=== PATIENT | female | born 1990 | race Caucasian/White ===

== ENCOUNTER → 2018-05-26 08:05 | Outpatient (CLI) | payer MEDICAID, SELFPAY ==
--- NOTE | 2018-05-26 08:08 | US_ITS ---
US OB transvaginal HISTORY: Evaluate early OB ultrasound ITS.REASON: US OB Dates ORDERING PHYSICIAN: Shaan Talavera MD PATIENT AGE: 28 years COMPARISON: None FINDINGS: An intrauterine gestational sac is present with a pole with a crown-rump length of 1.69cm correlating to gestational age of 8w1d. heart tones are present with an FHR of 154 bpm's. Yolk sac is noted. There is a small amount of fluid noted along the superior aspect of the gestational sac anteriorly. Unremarkable adnexa IMPRESSION: Live intrauterine gestation at 8 weeks 1 day as described above. Small amount of fluid around the gestational sac anteriorly which could be due to small amount of subchorionic hemorrhage Estimated due date by Ultrasound is 01/04/2019
== END ==
PROVIDERS: PCP Emergency Medicine; Visit Provider Nurse Practitioner Obstetrics & Gynecology
DX: O26.841 Uterine size-date discrepancy, first trimester (principal)
CPT/HCPCS: 76817

== ENCOUNTER → 2018-07-06 12:12 | Outpatient (CLI) | payer MEDICAID, SELFPAY ==
[2018-07-06 12:45] LABS: Basophils % 0.2 % (0.1-2.0); Eosinophils # 0.1 K/mm3 (0.0-0.4); Eosinophils % 0.6 % (0.1-12.0); Hematocrit 41.4 % (37.0-47.0); Lymphocytes # 1.8 K/mm3 (0.7-4.5); Lymphocytes % 23.5 % (10-50); Mean Corpuscular HGB Conc 33.8 g/dL (31.8-35.4); Mean Corpuscular Hemoglobin 29.8 pg (27.0-31.2); Mean Corpuscular Volume 88.3 fl (81-99); Mean Platelet Volume 9.2 fl (7.4-10.4); Monocytes # 0.4 K/mm3 (0.1-1.0); Monocytes % 4.7 % (1.7-9.3); Neutrophils # 5.5 K/mm3 (1.8-7.8); Neutrophils % 70.9 % (37.0-80.0); Platelet Count 187 K/mm3 (142-424); Red Blood Count 4.69 M/mm3 (4.20-5.40); Red Cell Distribution Width 14.1 % (11.5-17.5); White Blood Count 7.8 K/mm3 (4.8-10.8)
[2018-07-06 14:42] LABS: Free Thyroxine Index 3.1 ug/dL (5.93-13.13); T4 (Thyroxine) 12.2 ug/dl (4.7-13.3); Thyroid Stimulating Hormone 1.03 uIU/ml (0.358-3.740); Triiodothryronine (T3) Uptake 25 % (31-39)
[2018-07-07 07:46] LABS: Hepatitis B Surface Antigen Negative (Negative); Hepatitis C Antibody <0.1 s/co ratio (0.0-0.9)
[2018-07-08 07:47] LABS: HIV Screen 4th Generation wRfx Non Reactive (Non Reactive); Rapid Plasma Reagin Ab Titer Non Reactive (NonRea<1:1); Rubella Antibodies, IgG 1.72 index (Immune >0.99)
== END ==
PROVIDERS: Visit Provider Nurse Practitioner Obstetrics & Gynecology
DX: Z34.90 Encounter for supervision of normal pregnancy, unspecified, unspecified trimester (principal); Z3A.01 Less than 8 weeks gestation of pregnancy
CPT/HCPCS: 36415; 84436; 84443; 84479; 85025; 86592; 86703; 86762; 86850; 87340; 87380; G0432

== ENCOUNTER → 2018-07-07 18:02 | Outpatient (CLI) | payer MEDICAID, SELFPAY ==
[2018-07-13 09:48] LABS: Buprenorphine, Urine Negative ng/mL (Cutoff=10)
== END ==
PROVIDERS: Visit Provider Nurse Practitioner Obstetrics & Gynecology
DX: Z34.90 Encounter for supervision of normal pregnancy, unspecified, unspecified trimester (principal)
CPT/HCPCS: 80307

== ENCOUNTER → 2018-08-18 15:22 | Outpatient (CLI) | payer MEDICAID, SELFPAY ==
--- NOTE | 2018-08-18 15:24 | US_ITS ---
US OB /maternal detail: INDICATION: ITS.REASON: US OB Complete ORDERING PHYSICIAN: Shaan Talavera MD PATIENT AGE: 28 years TECHNIQUE: ultrasound transabdominal scanning. COMPARISON: No previous relevant studies. FINDINGS: Single viable intrauterine gestation. Ceph position. Placenta: Post/Lat placenta grade 1. There is average amount fluid. The cervix appears satisfactory. Closed and measuring 3 cm in length. Complete survey performed and was unremarkable on the submitted images as in PACS. No discrete anomalies identified on survey imaging by technologist. Active fetus. Three-vessel cord with satisfactory umbilical cord insertion. 4- chamber heart noted. Survey of brain & ventricles unremarkable. Face and neck survey unremarkable. Diaphragm and chest views unremarkable. Abdomen: Both kidneys noted and unremarkable. Stomach noted and satisfactory. Spine: Survey of the spine satisfactory with no anomalies identified nor imaged. Both arms and legs noted. Amniotic Fluid: Adequate. Maternal adnexa: No significant findings. Measurements: Average ultrasound age 20w5d. Gestational Age 20w1d. Estimated due date by ultrasound age 0812/31/2018. Estimated weight 380 grams. BPD = 20w5d OFD = 20w2d HC = 19w4d AC = 21w1d FL = 21w0d Growth Percentile= 82% Heart Rate = 125 bpm Cerebellum = 20w5d Humerus = 20w6d HC/AC is 1.06 (1.09-1.26). CI is 82% (70-86%). FL/BPD is 72%. FL/AC is 22%. IMPRESSION: There is a single live fetus which is in cephalic presentation with an average ultrasound age of 20 weeks and 5 days. No obvious anomalies. All parameters correlate. Please see above for detail
== END ==
PROVIDERS: PCP Emergency Medicine; Visit Provider Nurse Practitioner Obstetrics & Gynecology
DX: Z36.0 Encounter for antenatal screening for chromosomal anomalies (principal)
CPT/HCPCS: 76811

== ENCOUNTER 2018-10-15 09:03 | Outpatient (CLI) | payer MEDICAID, SELFPAY ==
[2018-10-15 10:26] LABS: Glucose,Fasting 86 mg/dL (60-105)
[2018-10-15 10:40] VITALS: BP 101/70; PULSE 115; RESP 18
[2018-10-15 10:44] LABS: Glucose 1 Hour 138 mg/dL (74-106)
== END 2018-10-15 10:40 | disposition home health service (06) ==
LOC: LAB 09:03 → INF 10:32
PROVIDERS: Visit Provider Nurse Practitioner Obstetrics & Gynecology
DX: Z34.90 Encounter for supervision of normal pregnancy, unspecified, unspecified trimester (principal)
CPT/HCPCS: 36415; 82951; J2790

== ENCOUNTER → 2018-12-15 18:15 | Outpatient (CLI) | payer MEDICAID, SELFPAY | PROVIDERS: Visit Provider Nurse Practitioner Obstetrics & Gynecology | DX: Z34.90 Encounter for supervision of normal pregnancy, unspecified, unspecified trimester (principal) | CPT/HCPCS: 86403 ==

== ENCOUNTER 2018-12-29 05:30 | Inpatient (IN) ==
[2018-12-29 07:13] LABS: Basophils % 0.2 % (0.1-2.0); Eosinophils # 0.1 K/mm3 (0.0-0.4); Eosinophils % 0.7 % (0.1-12.0); Hematocrit 37.7 % (37.0-47.0); Hemoglobin 12.3 g/dL (12.2-16.2); Lymphocytes % 27.6 % (10-50); Mean Corpuscular HGB Conc 32.7 g/dL (31.8-35.4); Mean Platelet Volume 10.5 fl (7.4-10.4); Monocytes # 0.5 K/mm3 (0.1-1.0); Monocytes % 6.4 % (1.7-9.3); Neutrophils # 4.8 K/mm3 (1.8-7.8); Platelet Count 170 K/mm3 (142-424); Red Blood Count 4.34 M/mm3 (4.20-5.40); Red Cell Distribution Width 14.1 % (11.5-17.5); White Blood Count 7.4 K/mm3 (4.8-10.8)
[2018-12-29 07:30] LABS: Anion Gap 15.2 mEq/L (5-15); Calcium 8.6 mg/dL (8.5-10.1)
--- NOTE | 2018-12-29 08:19 | Operative Note ---
Date of procedure: 12/29/18 Pre-op Diagnosis:: Term , previous section Post-op Diagnosis:: Term , previous section Procedure performed:: Repeat lower segment transverse section Surgeon:: Shaan Talavera MD Investigative Analyst(s):: Dr. Sena MINER:: Rudy Pan Anesthesia: spinal Estimated blood loss (mL): 600 Clinical Note:: She is a 28-year-old 4 para 3 who is had 2 previous sections. As result of that she was offered repeat lower segment transverse section at term. Operative findings:: She delivered a liveborn female infant at 7:48 AM on the morning of December 29, 2018. The baby had Apgars of 8 at 1 minute and 9 at 5 minutes. The lower uterine segment was really quite thin. It was just about a millimeter thick. Ovaries and tubes appeared normal. Operative note:: She was taken to the operating room where spinal anesthesia was found be adequate. She was prepped and draped in normal sterile fashion in the supine position with a leftward tilt. A Alvarez catheter was in the bladder. A Pfannenstiel skin incision was made with knife then carried through to the underlying layer of fascia with cautery. The fascia was opened in the midline with cautery and extended laterally using Trejo scissors. Nuria clamps were applied to the superior aspect of the fascial incision which was tented up and the underlying rectus muscles dissected off using cautery. The [place] clamps were then applied to the inferior aspect of the fascial incision which in a similar fashion was tented up and the underlying rectus muscles dissected off using cautery. The rectus muscles were then in the midline, the peritoneum identified, and entered sharply with Metzenbaum scissors. This incision was then extended superiorly and inferiorly with cautery. We had good visualization of the bladder inferiorly. The bladder peritoneum was then opened in the midline and extended laterally using Metzenbaum scissors. A bladder flap was created digitally. Transverse incision was made through the uterine muscle to the amnion. This muscle was very thin. This incision was then extended laterally using fingers traction. The amnion was entered sharply with knife. There was clear amniotic fluid. The infant's head was then delivered atraumatically. This was followed by the anterior shoulder and the rest of the infant's body atraumatically. The oropharynx and nasopharynx were bulb suctioned. The infant was then handed off to Dr. Sauer who assigned Apgars of 8 at 1 minute and 9 at 5 minutes. We then obtained cord blood as well as cord pH. Using gentle traction on the cord and countertraction on the fundus I was able to easily deliver the placenta intact. It had a normal three-vessel cord. The uterus was then cleared of clots and debris . The uterus was then exteriorized from the abdominal cavity. The uterine incision was then closed using running 0 Vicryl suture in a locked fashion. A second layer of the same suture was used to imbricate the first layer. The bladder peritoneum was then closed using running 2-0 Vicryl suture in a locked fashion. The gutters and cul-de-sac were then cleared of clots and debris . Once again hemostasis was assured. The uterus was returned to the abdominal cavity. The peritoneum was grasped with Luanne clamps and closed using running 2-0 Vicryl suture. The rectus muscles were then reapproximated using running 0 Vicryl suture. The fascia was closed using running #1 Vicryl suture. The subcutaneous tissues were then irrigated with warm water followed by closure Obdulio's fascia using running 2-0 Monocryl suture. The skin was closed with leobardo. I then cl eaned the skin with Hibiclens. Sterile dressings were applied. She tolerated the procedure well and was taken to the recovery room in excellent condition. All sponges minute and needle counts were correct. Estimate a blood loss was approximately 600 mL. Condition: stable Disposition: PACU Specimens:: Products of conception Complications:: None
--- NOTE | 2018-12-29 08:21 | Progress Note ---
[facility] Anesthesia Checklist - Patient Identification Patient Identification: Arm Band - Structural Data Admitted From: Inpatient Planned Operative Procedure/s: repeat c/s Consent for Planned Operative Procedure(s) Verified: Yes Verified Documents: Surgical Consent, History and Physical - NPO Status Verified Time NPO: 00:00 - Additional verifications Anesthesia Reactions: No - Airway Assessment C-Spine Mobility Assessed: Yes (mp2) TMJ Mobility Assessed: Yes Dentition: Good Dentition - Neurological Assessment Level of Consciousness: Awake, Alert - Anesthesia Plan Anesthesia Risk discussed: Yes Anesthesia Plan: Verified ASA Class: II Anesthesia Type: Spinal [facility] History I have reviewed the patient's past medical history: Yes Medical History: Reports:: Gastroesophageal Reflux Disease(GERD) *Have you ever received a pneumonia vaccine?: No *Have you received a flu vaccine this season?: No Other Surgeries: Yes: Amputation: No Fractures: No - *Social History Smoking Status: Current every day smoker Tobacco Type: cigarettes Alcohol Intake: never Substance Use Type: denies use *Occupational Status:: unemployed *Travel in the last 8 weeks: None Family Hx:: No significant family history Para: 3
--- NOTE | 2018-12-29 08:22 | Progress Note ---
[facility] Anesthesia Record Part II Discharge Time: 08:45 Destination: [facility] PACU nurse assessment reviewed?: Yes Patient Condition:: Good Anesthesia Complications:: None Swallowing reflex intact?: Yes Cyanosis?: No
--- NOTE | 2018-12-29 08:22 | Progress Note ---
[facility] Anesthesia Record Part I Intake, IV Amount: 2,000 Estimated blood loss (mL): 600 Urine output (mL): 200 Blood Pressure: 124/58 SaO2: 95 Pulse Rate: 88 Respiratory Rate: 16 Temperature: 97.9 F Patient is:: Drowsy, Stable Stable to PACU at:: 08:15
--- NOTE | 2018-12-29 08:28 | Pharmacy Consult Notes ---
[facility] VTE Monitoring - Patient Demographics Admission date: 12/29/18 Report Date: 12/29/18 Time: 08:28 Allergies/Adverse Reactions: Patient Allergies No Known Allergies Allergy (Verified 12/22/18 15:27) Height: 1.63 m Weight: 100.698 kg - VTE Risk Labs: VTE Related Lab Results Hgb 12.3 g/dL (12.2-16.2) 12/29/18 06:10 Hct 37.7 % (37.0-47.0) 12/29/18 06:10 Plt Count 170 K/mm3 (142-424) 12/29/18 06:10 BUN 6 mg/dL (7-18) L 12/29/18 06:10 Creatinine 0.52 mg/dL (0.55-1.02) L 12/29/18 06:10 Estimated Creat Clear 258 mL/min (50-200) 12/29/18 06:10 Clinical Trial Participant: No - Prophylaxis VTE Prophylaxis Ordered?: Yes Types of VTE Prophylaxis: IPCS [place] (POST OP)
[2018-12-29 10:44] LABS: Microscopic, Urine URINE MICROSCOPIC (MICROSCOPIC)
[2018-12-29 10:47] LABS: Appearance,Urine CLOUDY (Clear); Blood, Urine 1+ (Negative); Color,Urine YELLOW (Yellow); Glucose,Urine (UA) Negative (Negative); Ketones,Urine 3+ (Negative); Leukocyte Esterase,Urine Negative (Negative); PH,Urine 6.5 (5.0-8.5); Protein,Urine 1+ (Negative); Specific Gravity, Urine 1.025 (1.005-1.030); Urobilinogen,Urine 0.2 EU/dl (0.2)
[2018-12-29 11:05] LABS: Bilirubin,Urine 1+ (Negative)
[2018-12-29 11:06] LABS: Bacteria,Urine 2+ /lpf; Calcium Oxalate Crystals,Urine 1+ /lpf
[2018-12-29 11:18] LABS: Amphetamine/Metha Screen,Urine Negative ng/mL (<1000); Barbiturates Screen,Urine Negative ng/mL (<200); Benzodiazepines Screen,Urine Negative ng/mL (<200); Cannabinoid Screen,Urine Negative ng/mL (<50); Cocaine Screen,Urine Negative ng/mL (<300); Methadone Screen,Urine Negative ng/mL (<300); Opiate Screen,Urine Negative ng/mL (<300); Phencyclidine Screen,Urine Negative ng/mL (<25)
[2018-12-30 08:07] LABS: Hematocrit 34.6 % (37.0-47.0); Hemoglobin 11.5 g/dL (12.2-16.2)
--- NOTE | 2018-12-30 09:38 | Progress Note ---
Internal Medicine - PN: Subj *Date: 12/30/18 *Time: 09:37 Interval history: She is doing well this morning. She still has some lower abdominal pain. She would like to switch from IV Dilaudid to oral Dilaudid medicines. We will go ahead and start Dilaudid 2 mg p.o. every 3 hours as needed. Her incision is clean and dry. She is breast-feeding. Exam Vital signs and Labs for Last 24 Hours: Temp Pulse Resp BP Pulse Ox 97.6 F 87 18 108/68 L 99 12/29/18 08:45 12/29/18 08:45 12/29/18 08:45 12/29/18 08:45 12/29/18 08:45 Laboratory Results - last 24 hr 12/29/18 06:15: Urine Color Yellow, Urine Appearance Cloudy, Urine pH 6.5, Ur Specific [place] 1.025, Urine Protein 1+, Urine Glucose (UA) Negative, Urine Ketones 3+, Urine Blood 1+, Urine Nitrate Negative, Urine Bilirubin 1+ A, Urine Urobilinogen 0.2, Ur Leukocyte Esterase Negative, Urine RBC 5-10, Urine WBC 5- 10, Ur Squamous Epith Cells 10-20, Calcium Oxalate Crystal 1+, Urine Bacteria 2+ 12/29/18 06:15: Urine Opiates Screen Negative, Urine Methadone Screen Negative, Ur Barbituates Screen Negative, Ur Phencyclidine Scrn Negative, Ur Amphetamines Screen Negative, U Benzodiazepines Scrn Negative, Urine Cocaine Screen Negative, U Marijuana (THC) Screen Negative 12/29/18 08:06: POC Glucose 63 L 12/30/18 07:30: Hgb 11.5 L, Hct 34.6 L I & O for Last 24 hours: Intake & Output 12/27/18 12/28/18 12/29/18 12/30/18 11:59 11:59 11:59 11:59 Intake Total 1999 Balance 1999 Weight 222 lb - Constitutional no acute distress Assessment and Plan (1) Delivery by section of full-term Current visit: Yes Status: Acute Category: Medical Code(s): O82 - Encounter for delivery without indication (2) Previous section Current visit: No Status: Acute Category: Surgical Code(s): Z98.891 - History of uterine scar from previous surgery - Assessment and plan all Dx Assessment and Plan for all problems:: She is doing very well. We will change to oral Dilaudid. We will plan to send her home in 48 hours.
--- NOTE | 2018-12-31 08:59 | Progress Note ---
Internal Medicine - PN: Subj *Date: 12/31/18 *Time: 08:58 Interval history: She continues to do well. Her pain is better controlled today. She did have some increased pain yesterday. Her incision is clean and dry. She is breast- feeding. Exam Vital signs and Labs for Last 24 Hours: Temp Pulse Resp BP Pulse Ox 97.6 F 87 18 108/68 L 99 12/29/18 08:45 12/29/18 08:45 12/29/18 08:45 12/29/18 08:45 12/29/18 08:45 Laboratory Results - last 24 hr 12/30/18 07:30: Blood Type O Negative, Antibody Screen Negative, Screen Negative, Baby's Rh Status Positive 12/30/18 11:25: Rhogam Infusion Rhogam release I & O for Last 24 hours: Intake & Output 12/28/18 12/29/18 12/30/18 12/31/18 11:59 11:59 11:59 11:59 Intake Total 1999 Balance 1999 Weight 222 lb Microbiology Reports for the Last 24 Hours: Microbiology 12/29/18 06:15 Urine,Clean Catch Urine Culture - Preliminary NO GROWTH AFTER 24 HOURS - Constitutional no acute distress Assessment and Plan (1) Delivery by section of full-term Current visit: Yes Status: Acute Category: Medical Code(s): O82 - Encounter for delivery without indication (2) Previous section Current visit: No Status: Acute Category: Surgical Code(s): Z98.891 - History of uterine scar from previous surgery - Assessment and plan all Dx Assessment and Plan for all problems:: She is doing better today. She is breast-feeding. We will plan to send her home tomorrow.
[2018-12-31 10:15] VITALS: BP 73/46
--- NOTE | 2019-01-01 10:21 | Discharge Summary ---
General - General Admission date:: 12/29/18 Discharge date: 01/01/19 HPI HPI: She is a 28-year-old 4 para 3 who was 39 weeks gestational age. She has had 2 previous sections and as a result that was offered repeat lower segment transverse section at term. Hospital Course Hospital Course: She delivered by section a liveborn female child at 7:48 AM on the morning of December 29, 2018. The baby weighed 7 pounds 10 ounces and had Apgars of 8 at 1 minute and 9 at 5 minutes. She has done well post operatively and has remained afebrile throughout her hospitalization. She is eating and drinking and ambulating. Her pain is well controlled. She is breast-feeding. She has O Rh- blood and she has received RhoGam. She is rubella immune and was group B strep negative. Her selling manager is Dr. Sauer. She is discharged home to follow-up with me in approximately 2 weeks time. She will continue with her vitamins and iron. She was given the usual instructions with respect to limiting her activity and driving and sexual activity. She was given a prescription for hydromorphone 2 mg every 6 hours number 30 tablets. Her condition on discharge is stable. Objective Vital signs: Temp Pulse Resp BP Pulse Ox 98 F 168 H 48 H 73/46 L 100 12/31/18 08:00 12/31/18 08:00 12/31/18 08:00 12/31/18 08:00 12/31/18 08:00 no acute distress DS: Diagnosis - Discharge Diagnosis (1) Delivery by section of full-term Status: Acute (2) Previous section Status: Acute Discharge Plan - Patient Discharge Instructions ACTIVITY: No heavy lifting DIET: continue same diet - Follow up Plan Disposition: Home, Self-Correction Medications: Home Medications Medication Instructions Recorded Confirmed Type Ferrous Sulfate 325 mg PO DAILY 12/29/18 12/29/18 History Pnv No.122/Iron/Folic Acid 1 tab PO DAILY 12/29/18 12/29/18 History [ Multi] raNITIdine HCl [Ranitidine HCl] 150 mg PO BID 12/29/18 12/29/18 History Hydromorphone HCl [Hydromorphone 2 mg PO Q4HP PRN #30 tab 01/01/19 Rx 2mg Tab] Prescriptions/Medication Reconciliation: New Hydromorphone HCl [Hydromorphone 2mg Tab] 2 mg PO Q4HP PRN #30 tab PRN Reason: Severe Pain Continued raNITIdine HCl [Ranitidine HCl] 150 mg PO BID Ferrous Sulfate 325 mg PO DAILY Pnv No.122/Iron/Folic Acid [ Multi] 1 tab PO DAILY - Problem Reconciliation Problems Reviewed?: Yes
== END 2019-01-01 14:00 | disposition home or self-care (01) | DRG 788 ==
LOC: OB 05:30
PROVIDERS: ADMIT Nurse Practitioner Obstetrics & Gynecology; ATTEND Nurse Practitioner Obstetrics & Gynecology
CPT/HCPCS: 36415; 59025; 80048; 80305; 81001; 82800; 82962; 85014; 85018; 85025; 85461; 86850; 87086; J2405; J2790

== ENCOUNTER → 2020-02-15 16:22 | Outpatient (CLI) | payer MEDICAID, SELFPAY ==
[2020-02-15 16:33] LABS: Basophils % 0.4 % (0.1-2.0); Eosinophils # 0.2 K/mm3 (0.0-0.4); Eosinophils % 1.7 % (0.1-12.0); Hematocrit 44.4 % (37.0-47.0); Hemoglobin 14.3 g/dL (12.2-16.2); Lymphocytes # 2.7 K/mm3 (0.7-4.5); Lymphocytes % 29.9 % (10-50); Mean Corpuscular HGB Conc 32.2 g/dL (31.8-35.4); Mean Corpuscular Hemoglobin 30.3 pg (27.0-31.2); Mean Corpuscular Volume 94.2 fl (81-99); Mean Platelet Volume 10.5 fl (7.4-10.4); Monocytes # 0.5 K/mm3 (0.1-1.0); Monocytes % 5.6 % (1.7-9.3); Neutrophils # 5.6 K/mm3 (1.8-7.8); Neutrophils % 62.4 % (37.0-80.0); Platelet Count 241 K/mm3 (142-424); Red Blood Count 4.71 M/mm3 (4.20-5.40); Red Cell Distribution Width 13.5 % (11.5-17.5)
[2020-02-15 16:41] LABS: Chloride 106 mmol/L (98-107); Potassium 4.3 mmoL/L (3.5-5.1); Sodium 137 mmol/L (136-145)
[2020-02-15 16:44] LABS: Alanine Aminotransferase 15 U/L (12-78); Albumin Level 3.9 g/dl (3.5-5.0); Albumin/Globulin Ratio 1.4 (1.1-1.8); Alkaline Phosphatase 65 U/L (38-126); Anion Gap 12.3 mEq/L (5-15); Aspartate Amino Transferase 22 U/L (14-36); Bilirubin,Total 0.4 mg/dl (0.2-1.3); Blood Urea Nitrogen 14 mg/dl (7-17); Carbon Dioxide 23 mmol/L (22.0-30.0); Cholesterol 199 mg/dl (140-200); Estimated Glomerular Filt Rate 119 ml/min (>60); GFR (African American) 144 ML/MIN (>60); Globulin 2.8 g/dL (1.3-3.2); Total Protein,Serum 6.7 g/dl (6.3-8.2); Triglycerides 131 mg/dl (30-150); VLDL Cholesterol 26 mg/dL (0-40)
[2020-02-15 16:45] LABS: Calcium 8.9 mg/dl (8.4-10.2); Glucose 103 mg/dl (74-100); HDL Cholesterol 67 mg/dl (40-60)
[2020-02-15 16:56] LABS: Direct LDL Cholesterol 125.11 mg/dL (100-129)
[2020-02-15 17:01] LABS: T4 (Thyroxine) 14.2 ug/dl (5.53-11.0)
== END ==
PROVIDERS: Visit Provider Nurse Practitioner Family
DX: E03.9 Hypothyroidism, unspecified (principal); E66.9 Obesity, unspecified
CPT/HCPCS: 80053; 80061; 84436; 84443; 85025

== ENCOUNTER → 2020-05-07 18:09 | Outpatient (CLI) | payer MEDICAID, SELFPAY ==
[2020-05-07 19:00] LABS: Thyroid Stimulating Hormone 1.58 uIU/mL (0.465-4.68)
== END ==
LOC: LAB 18:09 → LAB.DROPOF 05-08 08:35
PROVIDERS: Visit Provider Physician Assistant
DX: R53.83 Other fatigue (principal)
CPT/HCPCS: 84443

== ENCOUNTER → 2021-02-06 17:17 | Outpatient (CLI) | payer MEDICAID, SELFPAY ==
[2021-02-06 21:08] LABS: Amphetamine/Metha Screen,Urine Negative ng/ml (<1000); Barbiturates Screen,Urine Negative ng/ml (<200)
[2021-02-06 21:12] LABS: Benzodiazepines Screen,Urine Positive ng/ml (<200); Cannabinoid Screen,Urine Positive ng/ml (<50)
[2021-02-06 21:13] LABS: Cocaine Screen,Urine Negative ng/ml (<300)
[2021-02-06 21:14] LABS: Methadone Screen,Urine Negative ng/ml (<300); Opiate Screen,Urine Positive ng/ml (<300)
[2021-02-06 21:15] LABS: Phencyclidine Screen,Urine Negative ng/ml (<25)
== END ==
PROVIDERS: Visit Provider Nurse Practitioner Family
DX: F41.9 Anxiety disorder, unspecified (principal)
CPT/HCPCS: 80305

== ENCOUNTER → 2021-03-30 12:38 | Outpatient (CLI) | payer MEDICAID, SELFPAY ==
[2021-04-01 13:29] LABS: H. pylori Breath Test Negative (Negative)
== END ==
PROVIDERS: Visit Provider Physician Assistant
DX: R10.9 Unspecified abdominal pain (principal)
CPT/HCPCS: 83013

== ENCOUNTER → 2021-05-29 14:23 | Outpatient (CLI) | payer MEDICAID, SELFPAY | PROVIDERS: Visit Provider Nurse Practitioner Family | DX: Z20.822 Contact with and (suspected) exposure to COVID-19 (principal); R05.9 Cough, unspecified | CPT/HCPCS: C9803; U0003; U0005 ==

== ENCOUNTER → 2022-03-24 14:19 | Outpatient (CLI) | payer MEDICAID, SELFPAY ==
[2022-03-24 15:14] LABS: Basophils % 0.7 % (0.1-2.0); Eosinophils # 0.2 K/mm3 (0.0-0.4); Eosinophils % 2.6 % (0.1-12.0); Hematocrit 44.9 % (37.0-47.0); Hemoglobin 14.1 g/dL (12.2-16.2); Lymphocytes # 1.6 K/mm3 (0.7-4.5); Lymphocytes % 29.6 % (10-50); Mean Corpuscular HGB Conc 31.3 g/dL (31.8-35.4); Mean Corpuscular Hemoglobin 27.9 pg (27.0-31.2); Mean Platelet Volume 10.9 fl (7.4-10.4); Monocytes # 0.3 K/mm3 (0.1-1.0); Monocytes % 5.6 % (1.7-9.3); Neutrophils # 3.4 K/mm3 (1.8-7.8); Neutrophils % 61.4 % (37.0-80.0); Platelet Count 166 K/mm3 (142-424); Red Blood Count 5.05 M/mm3 (4.20-5.40); Red Cell Distribution Width 14.3 % (11.5-17.5); White Blood Count 5.5 K/mm3 (4.8-10.8)
[2022-03-24 15:46] LABS: Chloride 104 mmol/L (98-107); Potassium 4.3 mmoL/L (3.5-5.1); Sodium 140 mmol/L (136-145)
[2022-03-24 15:49] LABS: Alanine Aminotransferase 37 U/L (12-78); Albumin/Globulin Ratio 1.8 (1.1-1.8); Alkaline Phosphatase 80 U/L (38-126); Anion Gap 12.3 mEq/L (5-15); Aspartate Amino Transferase 38 U/L (14-36); Bilirubin,Total 0.2 mg/dl (0.2-1.3); Blood Urea Nitrogen 11 mg/dl (7-17); Calcium 9.1 mg/dl (8.4-10.2); Carbon Dioxide 28 mmol/L (22.0-30.0); Estimated Glomerular Filt Rate 117 ml/min (>60); GFR (African American) 141 ML/MIN (>60); Globulin 2.2 g/dL (1.3-3.2); Glucose 105 mg/dl (74-100); Total Protein,Serum 6.2 g/dl (6.3-8.2)
[2022-03-24 16:26] LABS: HCG,Quantitative < 2 mIU/ml (0-5.42)
== END ==
PROVIDERS: PCP Emergency Medicine; Visit Provider Obstetrics & Gynecology
DX: Z30.09 Encounter for other general counseling and advice on contraception (principal)
CPT/HCPCS: 36415; 80053; 84702; 85025

== ENCOUNTER 2022-03-26 05:55 | Day surgery (SDC) | payer MEDICAID, SELFPAY ==
[2022-03-26] VITALS (14 sets, daily range): BP systolic 121–153; BP diastolic 56–83; PULSE 74–100; RESP 16–23; TEMP 36.5–38; O2SAT 94–100; BMI 43.9
--- NOTE | 2022-03-26 07:07 | EXP.ANES.CKL ---
PFSH PFSH Medical History Allergies Anxiety Attention deficit hyperactivity disorder (ADHD) Depression Gastroesophageal reflux disease History of anemia History of gastroesophageal reflux (GERD) Hypothyroidism Kidney stone Morbid obesity with BMI of 40.0-44.9, adult Pneumonia Sterilization Urinary tract infection Surgical History Hx of section Family History Father Diabetes Thyroid disorder Mother COPD (chronic obstructive pulmonary disease) Thyroid disorder Social History Smoking Status: Current every day smoker tobacco type: cigarettes packs per day: 1 years smoked: 10 alcohol intake: current substance use type: marijuana current occupational status: unemployed Travel in the last 8 weeks: Inside the [place] caffeine: No [facility] Anesthesia Checklist Patient Identification Patient Identification: Arm Band and Verbal (Name & ) Structural Data Admitted From: Home Planned Operative Procedure/s: Lap. salpingectomy Consent for Planned Operative Procedure(s) Verified: Yes NPO Status Verified Time NPO: 00:00 Chart Verification Results Verified: CBC and BMP Additional verifications Anesthesia Reactions: No Hx Blood Transfusions: No Blood Transfusion Reaction: No Airway Assessment C-Spine Mobility Assessed: Yes TMJ Mobility Assessed: Yes Dentition: Good Dentition Neurological Assessment Level of Consciousness: Awake Hx Seizures: No Numbness or tingling in extremities: No Anesthesia Plan Anesthesia Risk discussed: Yes Anesthesia Plan: Verified ASA Class: II Anesthesia Type: General
--- NOTE | 2022-03-26 08:50 | P.PNANES_ITS ---
[facility] Anesthesia Record Part I Anesthesia Record I Intake, IV Amount: 900 Estimated blood loss (mL): 50 Urine output (mL): 0 Blood Pressure: 152/69 SaO2: 98 Pulse Rate: 100 Respiratory Rate: 23 Temperature: 98.3 F Patient is:: Awake Stable to PACU at:: 08:48
--- NOTE | 2022-03-26 09:28 | SUR.PHASEI ---
Report called to Warren Laird RN. [id number] - Pt transported to post op and left in care of A ALKA Laird. Bed in lowest locked position. Pt currently sitting up in bed drinking water. Pain 09/01, reports tolerable. Incisions x3 w/ dermabond c/d/i. No vaginal bleeding noted.
--- NOTE | 2022-03-26 09:40 | SUR.PHASEII ---
Will Starkey CRNA did not give Tylenol pre-op or in OR.
--- NOTE | 2022-03-26 11:23 | EXP.OP.NOTE ---
Date of procedure: 03/26/22 Pre-op Diagnosis:: 1. Complete family status, desires permanent sterilization Post-op Diagnosis:: 1. Complete family status, desires permanent sterilization 2. Intra-abdominal/pelvic adhesions Procedure performed:: 1. Laparoscopy 2. Lysis of adhesions, 10 minutes spent lysising adhesions 3. Bilateral salpingectomy Surgeon:: Kaylin Dillon DO Professor Of Criminal Justice(s):: N/a AFTER SCHO[employer] PROGRAM DIRECTOR:: Heike Starkey Anesthesia: GETA Estimated blood loss (mL): 50 Clinical Note:: Ms Nalini Taylor presents for preop visit. She is a very pleasant 32 yo [id number]. She is complete with childbearing and desires permanent sterilization. History of x 4. Operative findings:: 1. Uterus normal size, anteverted and not freely movable 2. No adnexal masses palpated 3. On laparoscopic exam, omentum adhered to anterior abdominal wall from umbilicus down to anterior aspect of uterus 4. Thick adhesions between bladder and anterior uterine wall holding uterus in place Operative note:: Risks, benefits and alternatives were discussed with the patient. Risks include but are not limited to bleeding, infection, damage to adjacent structures and VTE. Patient voiced understanding and agreed to proceed with surgery. She was wheeled back to the operating room and placed under general anesthesia without difficulty. She was placed in the dorsal lithotomy position and prepped and draped in normal sterile fashion. A straight catheter was used to drain the bladder. A bimanual exam was performed. A weighted Auvard was placed in the vaginal vault. A single tooth tenaculum was placed on the anterior lip of the cervix. [place] manipulator was inserted into the cervical canal and attached to the tenaculum. Weighted Auvard was removed from the vagina. Attention was then drawn to the abdomen. A 2cm infraumbilical incision was made. Veress needle was tested and inserted intraabdominally without difficulty. Opening pressure of 7 mm Hg. Abdomen was then insulflated to 15 mm Hg. Trocar was inserted through infraumbilical incision and laparoscope was inserted. Abdomen was viewed in its entirety. See findings above. Pictures were taken. Left lower quadrant was transilluminated. 5 mm incision was made and 5 mm disposable blunt trocar was inserted into the abdomen under direct laparoscopic visualization. Trocar was removed and sleeve was left in place. Right lower quadrant was transilluminated. A 5 mm incision was made and a 5 mm disposable trocar was inserted into the abdomen under direct laparoscopic visualization. Obturator was removed and sleeve was left in place. Lysis of intraabdominal adhesions was performed with blunt dissection and Ligasure. Next, Fimbriated end of left fallopian tube was grasped. Ligasure was used to transect the right mesosalpinx and fallopian tube at uterine cornua, leaving left ovary in situ. Same procedure was carried out on the contralateral side. Bilateral fallopian tubes were removed from the body and off of the sterile field. Bilateral fallopian tubes will be sent to pathology for review. Small amount of oozing noted at anterior uterine serosa where adhesions were lysed. Bhupinder was applied over bleeding site. Hemostasis was noted. Intraabdominal pressure was reduced to 5 mm Hg and hemostasis remained. Left lower quadrant trocar was removed under direct laparoscopic visualization. Right lower quadrant trocar was removed under direct laparoscopic visualization. Pneumoperitoneum was released into the atmosphere. Infraumbilical trocar was removed under direct laparoscopic visualization to ensure no herniation of bowel or omentum. Skin incisions were closed with 3-0 Vicryl. Dermabond was applied over closed skin incisions. All instruments were removed from the vagina. Tenaculum site was noted to be hemostatic. Patient was cleaned and placed into the dorsal supine position. She awoke from anesthesia without difficulty. She was transported to the recovery room in stable condition
--- NOTE | 2022-03-27 09:06 | EXP.ANES.II ---
[facility] Anesthesia Record Part II Anesthesia Record Part II Discharge Time: 09:18 Destination: Surgical Day Care (OP Surgery) PACU nurse assessment reviewed?: Yes Patient Condition:: Good Anesthesia Complications:: None Swallowing reflex intact?: Yes Cyanosis?: No Blood Pressure: 123/83 Pulse Rate: 86 Temperature: 98.6 F Mental Status: Alert & Oriented Pain level:: 4 Nausea and/or vomitting:: None Intake, IV Amount: 0
[2022-03-27 09:08] VITALS: BP 123/83; PULSE 86; TEMP 37
== END 2022-03-26 10:20 | disposition home or self-care (01) ==
PROVIDERS: PCP Emergency Medicine; Visit Provider Obstetrics & Gynecology
PROC: (CPT 58700; principal; 2022-03-26 07:30)
DX: Z30.2 Encounter for sterilization (principal); N73.6 Female pelvic peritoneal adhesions (postinfective); Z72.0 Tobacco use; Z79.899 Other long term (current) drug therapy
CPT/HCPCS: 58700; 49329; J2405

== ENCOUNTER → 2022-04-30 16:15 | Outpatient (CLI) | payer MEDICAID, SELFPAY ==
[2022-05-01 09:55] LABS: Barbiturates Screen,Urine Negative ng/ml (<200)
[2022-05-01 09:56] LABS: Benzodiazepines Screen,Urine Positive ng/ml (<200)
[2022-05-01 09:57] LABS: Amphetamine/Metha Screen,Urine Positive ng/ml (<1000); Cocaine Screen,Urine Negative ng/ml (<300)
[2022-05-01 09:58] LABS: Methadone Screen,Urine Negative ng/ml (<300)
[2022-05-01 09:59] LABS: Cannabinoid Screen,Urine Positive ng/ml (<50); Opiate Screen,Urine Negative ng/ml (<300)
[2022-05-01 10:00] LABS: Phencyclidine Screen,Urine Negative ng/ml (<25)
== END ==
PROVIDERS: PCP Physician Assistant; Visit Provider Physician Assistant
DX: Z79.899 Other long term (current) drug therapy (principal)
CPT/HCPCS: 80305

== ENCOUNTER → 2022-10-28 13:43 | Outpatient (CLI) | payer MEDICAID, SELFPAY ==
[2022-10-28 19:13] LABS: Basophils % 0.5 % (0.1-2.0); Eosinophils # 0.2 K/mm3 (0.0-0.4); Eosinophils % 2.9 % (0.1-12.0); Hematocrit 45.1 % (37.0-47.0); Hemoglobin 14.2 g/dL (12.2-16.2); Lymphocytes # 2.9 K/mm3 (0.7-4.5); Lymphocytes % 41.9 % (10-50); Mean Corpuscular HGB Conc 31.5 g/dL (31.8-35.4); Mean Corpuscular Hemoglobin 28.3 pg (27.0-31.2); Monocytes # 0.3 K/mm3 (0.1-1.0); Monocytes % 4.7 % (1.7-9.3); Neutrophils # 3.5 K/mm3 (1.8-7.8); Neutrophils % 50.1 % (37.0-80.0); Platelet Count 221 K/mm3 (142-424); Red Blood Count 5.01 M/mm3 (4.20-5.40); Red Cell Distribution Width 14.8 % (11.5-17.5); White Blood Count 6.9 K/mm3 (4.8-10.8)
[2022-10-28 19:55] LABS: Alanine Aminotransferase 19 U/L (12-78); Albumin Level 3.8 g/dl (3.5-5.0); Albumin/Globulin Ratio 1.5 (1.1-1.8); Alkaline Phosphatase 73 U/L (38-126); Anion Gap 13.8 mEq/L (5-15); Aspartate Amino Transferase 25 U/L (14-36); Bilirubin,Total 0.3 mg/dl (0.2-1.3); Blood Urea Nitrogen 15 mg/dl (7-17); Calcium 8.1 mg/dl (8.4-10.2); Carbon Dioxide 25 mmol/L (22.0-30.0); Chloride 106 mmol/L (98-107); Chol/HDL Ratio 3.9 (1-3.5); Cholesterol 189 mg/dl (140-200); Estimated Glomerular Filt Rate 117 ml/min (>60); GFR (African American) 141 ML/MIN (>60); Globulin 2.6 g/dL (1.3-3.2); Glucose 102 mg/dl (74-100); HDL Cholesterol 49 mg/dl (40-60); Potassium 3.8 mmoL/L (3.5-5.1); Sodium 141 mmol/L (136-145); Total Protein,Serum 6.4 g/dl (6.3-8.2); Triglycerides 164 mg/dl (30-150); VLDL Cholesterol 33 mg/dL (0-40)
[2022-10-28 20:06] LABS: Direct LDL Cholesterol 104.65 mg/dL (100-129)
[2022-10-28 20:12] LABS: 25-OH Vitamin D, Total < 12.8 ng/mL (30-100)
[2022-10-28 20:27] LABS: Thyroid Stimulating Hormone 4.93 uIU/mL (0.465-4.68)
[2022-10-28 21:24] LABS: Amphetamine/Metha Screen,Urine Positive ng/ml (<1000)
[2022-10-28 21:25] LABS: Barbiturates Screen,Urine Negative ng/ml (<200); Benzodiazepines Screen,Urine Positive ng/ml (<200)
[2022-10-28 21:28] LABS: Cannabinoid Screen,Urine Positive ng/ml (<50); Cocaine Screen,Urine Negative ng/ml (<300)
[2022-10-28 21:29] LABS: Methadone Screen,Urine Negative ng/ml (<300)
[2022-10-28 21:30] LABS: Opiate Screen,Urine Negative ng/ml (<300); Phencyclidine Screen,Urine Negative ng/ml (<25)
== END ==
PROVIDERS: PCP Physician Assistant; Visit Provider Physician Assistant
DX: Z00.00 Encounter for general adult medical examination without abnormal findings (principal); F90.9 Attention-deficit hyperactivity disorder, unspecified type; E55.9 Vitamin D deficiency, unspecified; Z79.899 Other long term (current) drug therapy
CPT/HCPCS: 80053; 80061; 80305; 82306; 84443; 85025

== ENCOUNTER → 2022-10-28 23:11 | Outpatient (CLI) | payer MEDICAID, SELFPAY | PROVIDERS: PCP Physician Assistant; Visit Provider Physician Assistant | DX: Z00.00 Encounter for general adult medical examination without abnormal findings (principal) ==

== ENCOUNTER → 2023-03-16 06:56 | Outpatient (CLI) | payer MEDICAID, SELFPAY ==
[2023-03-16 21:42] LABS: Amphetamine/Metha Screen,Urine Negative ng/ml (<1000); Cannabinoid Screen,Urine Positive ng/ml (<50)
[2023-03-16 21:43] LABS: Barbiturates Screen,Urine Negative ng/ml (<200)
[2023-03-16 21:44] LABS: Benzodiazepines Screen,Urine Positive ng/ml (<200); Cocaine Screen,Urine Negative ng/ml (<300)
[2023-03-16 21:45] LABS: Methadone Screen,Urine Negative ng/ml (<300); Opiate Screen,Urine Negative ng/ml (<300)
[2023-03-16 21:46] LABS: Phencyclidine Screen,Urine Negative ng/ml (<25)
== END ==
PROVIDERS: PCP Physician Assistant; Visit Provider Physician Assistant
DX: F90.9 Attention-deficit hyperactivity disorder, unspecified type (principal); Z79.899 Other long term (current) drug therapy
CPT/HCPCS: 80305

== ENCOUNTER → 2023-05-07 22:00 | Outpatient (CLI) | payer MEDICAID, SELFPAY ==
[2023-05-07 20:12] LABS: Benzodiazepines Screen,Urine Positive ng/ml (<200)
[2023-05-07 20:13] LABS: Amphetamine/Metha Screen,Urine Negative ng/ml (<1000)
[2023-05-07 20:14] LABS: Barbiturates Screen,Urine Negative ng/ml (<200); Methadone Screen,Urine Negative ng/ml (<300)
[2023-05-07 20:15] LABS: Cannabinoid Screen,Urine Positive ng/ml (<50)
[2023-05-07 20:16] LABS: Cocaine Screen,Urine Negative ng/ml (<300)
[2023-05-07 20:17] LABS: Opiate Screen,Urine Negative ng/ml (<300)
[2023-05-07 20:18] LABS: Phencyclidine Screen,Urine Negative ng/ml (<25)
== END ==
PROVIDERS: PCP Physician Assistant; Visit Provider Physician Assistant
DX: Z79.899 Other long term (current) drug therapy (principal)
CPT/HCPCS: 80305

== ENCOUNTER 2023-06-09 11:53 | Outpatient (CLI) | payer MEDICAID, SELFPAY ==
[2023-06-09 17:40] LABS: Amphetamine/Metha Screen,Urine Positive ng/ml (<1000)
[2023-06-09 17:41] LABS: Barbiturates Screen,Urine Negative ng/ml (<200)
[2023-06-09 17:42] LABS: Benzodiazepines Screen,Urine Positive ng/ml (<200)
[2023-06-09 17:45] LABS: Cannabinoid Screen,Urine Positive ng/ml (<50)
[2023-06-09 17:46] LABS: Cocaine Screen,Urine Negative ng/ml (<300)
[2023-06-09 17:47] LABS: Methadone Screen,Urine Negative ng/ml (<300); Opiate Screen,Urine Negative ng/ml (<300)
[2023-06-09 17:48] LABS: Phencyclidine Screen,Urine Negative ng/ml (<25)
== END 2023-06-09 23:59 ==
LOC: LAB.DROPOF 11:53
PROVIDERS: PCP Physician Assistant; Visit Provider Physician Assistant
DX: F41.9 Anxiety disorder, unspecified (principal); F90.9 Attention-deficit hyperactivity disorder, unspecified type
CPT/HCPCS: 80307

== ENCOUNTER 2023-07-03 13:11 | Outpatient (CLI) | payer MEDICAID, SELFPAY ==
[2023-07-03 18:44] LABS: Basophils % 0.2 % (0.1-2.0); Eosinophils # 0.1 K/mm3 (0.0-0.4); Hematocrit 43.9 % (37.0-47.0); Lymphocytes # 2.3 K/mm3 (0.7-4.5); Mean Corpuscular HGB Conc 31.9 g/dL (31.8-35.4); Mean Corpuscular Hemoglobin 28.9 pg (27.0-31.2); Mean Corpuscular Volume 90.7 fl (81-99); Mean Platelet Volume 10.4 fl (7.4-10.4); Monocytes # 0.6 K/mm3 (0.1-1.0); Monocytes % 5.8 % (1.7-9.3); Neutrophils # 7.1 K/mm3 (1.8-7.8); Neutrophils % 69.9 % (37.0-80.0); Platelet Count 194 K/mm3 (142-424); Red Blood Count 4.84 M/mm3 (4.20-5.40); Red Cell Distribution Width 14.8 % (11.5-17.5); White Blood Count 10.2 K/mm3 (4.8-10.8)
[2023-07-03 19:27] LABS: Alanine Aminotransferase 16 U/L (12-78); Albumin Level 3.7 g/dl (3.5-5.0); Albumin/Globulin Ratio 1.7 (1.1-1.8); Alkaline Phosphatase 63 U/L (38-126); Aspartate Amino Transferase 18 U/L (14-36); Bilirubin,Total 0.4 mg/dl (0.2-1.3); Blood Urea Nitrogen 12 mg/dl (7-17); Calcium 8.8 mg/dl (8.4-10.2); Carbon Dioxide 26 mmol/L (22.0-30.0); Chloride 109 mmol/L (98-107); Chol/HDL Ratio 3.5 (1-3.5); Cholesterol 205 mg/dl (140-200); Estimated Glomerular Filt Rate 116 ml/min (>60); GFR (African American) 140 ML/MIN (>60); Globulin 2.2 g/dL (1.3-3.2); Glucose 97 mg/dl (74-100); HDL Cholesterol 58 mg/dl (40-60); Sodium 139 mmol/L (136-145); Total Protein,Serum 5.9 g/dl (6.3-8.2); Triglycerides 79 mg/dl (30-150); VLDL Cholesterol 16 mg/dL (0-40)
[2023-07-03 19:39] LABS: Direct LDL Cholesterol 106.71 mg/dL (100-129)
[2023-07-03 19:51] LABS: Free Thyroxine Index 2.8 ug/dL (5.93-13.13); T4 (Thyroxine) 8.1 ug/dl (5.53-11.0); Triiodothryronine (T3) Uptake 34 % (23.5-40.5)
[2023-07-03 20:00] LABS: Thyroid Stimulating Hormone 1.04 uIU/mL (0.465-4.68)
[2023-07-03 20:04] LABS: Thyroid Stimulating Hormone 1.05 uIU/mL (0.465-4.68)
[2023-07-07 20:56] LABS: Neisseria gonorrhoeae, NAA Negative (Negative)
== END 2023-07-03 23:59 ==
LOC: LAB.DROPOF 13:13
PROVIDERS: PCP Family Medicine; Visit Provider Family Medicine
DX: Z20.2 Contact with and (suspected) exposure to infections with a predominantly sexual mode of transmission (principal); E03.9 Hypothyroidism, unspecified; R53.83 Other fatigue; Z79.899 Other long term (current) drug therapy
CPT/HCPCS: 80053; 80061; 84436; 84443; 84479; 85025; 87210; 87491; 87591

== ENCOUNTER 2024-03-29 20:34 | Observation (INO) | payer OTHER, SELFPAY ==
[2024-03-29] VITALS (7 sets, daily range): BP systolic 126–138; BP diastolic 80–95; PULSE 73–108; RESP 16–25; TEMP 36.6–37.1; O2SAT 92–94; BMI 79.4; BMI 34.4
--- NOTE | 2024-03-29 20:44 | XR_ITS ---
PROCEDURE INFORMATION: Exam: XR Chest Exam date and time: 03/29/2024 8:44 PM Age: 34 years old Clinical indication: Sternal or substernal pain; Additional info: Substernal cp, cough, fever, wheezing TECHNIQUE: Imaging protocol: Radiologic exam of the chest. Views: 2 views. COMPARISON: No relevant prior studies available. FINDINGS: Lungs: Mild opacities in the right lower lobe Pleural spaces: Unremarkable. No pleural effusion. No pneumothorax. Heart/Mediastinum: Unremarkable. No cardiomegaly. Bones/joints: Unremarkable. IMPRESSION: Mild opacities in the right lower lobe may represent atelectasis or pneumonia.
--- NOTE | 2024-03-29 21:12 | [facility].EDCP ---
Discharge Plan Disposition Patient Disposition: Admitted Prescriptions Prescriptions: No Action albuterol sulfate 90 mcg/actuation HFA aerosol inhaler 2 puff INHALATION QID PRN (Reason: shortness of breath or wheezing) Qty: 8.5 10RF fluconazole 150 mg tablet 150 mg PO Q3D Qty: 3 0RF (DME) Giovanni Mota [facility] Spacer See Rx Instructions .ROUTE .MEDSUPPLY Qty: 1 Rx Instructions: As directed ergocalciferol (vitamin D2) 1,250 mcg (50,000 unit) capsule 1,250 mcg PO WEEKLY Qty: 14 3RF fluticasone propionate 50 mcg/actuation spray,suspension See Rx Instructions .ROUTE .COMPLEX Qty: 16 0RF Rx Instructions: USE 1 SPRAY TWICE DAILY ADMINISTER INTO EACH NOSTRIL omeprazole 40 mg capsule,delayed release(DR/EC) See Rx Instructions .ROUTE .COMPLEX Qty: 90 1RF Dose Instruction: TAKE ONE CAPSULE BY MOUTH ONCE A DAY Rx Instructions: TAKE ONE CAPSULE BY MOUTH ONCE A DAY levothyroxine 50 mcg tablet See Rx Instructions .ROUTE .COMPLEX Qty: 90 1RF Dose Instruction: TAKE ONE TABLET BY MOUTH ONCE A DAY Rx Instructions: TAKE ONE TABLET BY MOUTH ONCE A DAY cholecalciferol (vitamin D3) 50 mcg (2,000 unit) capsule 50 mcg PO DAILY Qty: 90 3RF cetirizine 10 mg tablet See Rx Instructions .ROUTE .COMPLEX Qty: 90 3RF Dose Instruction: TAKE ONE TABLET BY MOUTH ONCE A DAY NEEDED FOR ALLERGY SYMPTOMS Rx Instructions: TAKE ONE TABLET BY MOUTH ONCE A DAY NEEDED FOR ALLERGY SYMPTOMS meloxicam 15 mg tablet See Rx Instructions .ROUTE .COMPLEX Qty: 30 2RF Dose Instruction: TAKE ONE TABLET BY MOUTH ONCE A DAY Rx Instructions: TAKE ONE TABLET BY MOUTH ONCE A DAY trazodone 50 mg tablet 50 mg PO QHS Qty: 90 0RF azelastine 137 mcg (0.1 %) aerosol,spray See Rx Instructions .ROUTE .COMPLEX Qty: 30 6RF Dose Instruction: USE 1 SPRAY IN EACH NOSTRIL 2 TIMES A DAY Rx Instructions: USE 1 SPRAY IN EACH NOSTRIL 2 TIMES A DAY tizanidine 4 mg tablet See Rx Instructions .ROUTE .COMPLEX Qty: 60 2RF Dose Instruction: TAKE ONE TABLET BY MOUTH 2 TIMES A DAY NEEDED FOR MUSCLE SPASTICITY Rx Instructions: TAKE ONE TABLET BY MOUTH 2 TIMES A DAY NEEDED FOR MUSCLE SPASTICITY calcium carbonate 600 mg calcium (1,500 mg) tablet See Rx Instructions .ROUTE .COMPLEX Qty: 30 1RF Dose Instruction: TAKE ONE TABLET BY MOUTH ONCE A DAY Rx Instructions: TAKE ONE TABLET BY MOUTH ONCE A DAY buspirone 15 mg tablet 15 mg PO BID Qty: 60 2RF benzonatate 100 mg capsule 100 mg PO TID PRN (Reason: cough) Qty: 30 0RF Referrals Follow up/Referrals: Zayda Lovett APRN [Primary Care Provider] - See instructions Clinical Impressions Clinical Impression: Acute hypoxemic respiratory failure Pneumonia Qualifiers: Laterality: right Lung location: lower lobe of lung Print Language Print Language: Nepali Discharge ED Provider: Horacio Barakat HPI General Chief Complaint: Shortness of Breath/Dyspnea Stated Complaint: SOA, painful breathing,CHACON, V/D Time Seen by Provider: 03/29/24 20:37 Mode of Arrival: Ambulatory Source of Information: Patient Limitations: No Limitations Description of Symptoms (Recalled from ER Triage Doc. by RN): Pt presents to ed with c/o soa, not feeling well since beginning of december. hx of PNA, A&Ox4, resp even but labored. History of Present Illness HPI narrative: Please note that above description of symptoms, in this electronic medical record under categorization of recalled from ER triage doctor by RN are reflective of an initial nursing assessment, however, is not reflective of my full history and physical exam that was personally taken and clarified. Consequentially, this preceding description of symptoms, which may include the patient's categorized chief complaint in the EMR, do not reflect my personal clinical impression, and the ultimate description of history of present illness and patient stated complaints should be deferred to this section of the note. Unless stated otherwise or congruent with this section of the note, additional signs, symptoms, or incongruence should be interpreted as inaccurate with my clinical impression. Related Data Home Medications ?Medication ?Instructions ?Recorded ?Confirmed inhalational spacing device #1 ea 05/07/23 07/03/23 (Giovanni Svetlana [facility] spacer) Previous Rx's ?Medication ?Instructions ?Recorded albuterol sulfate 90 mcg/actuation 2 puff inhalation QID PRN 04/02/22 aerosol inhaler shortness of breath or wheezing #8.5 grams ergocalciferol (vitamin D2) 1,250 1,250 mcg PO WEEKLY #14 caps 12/29/22 mcg (50,000 unit) capsule fluticasone propionate 50 See Rx Instructions .Route 01/28/23 mcg/actuation nasal .COMPLEX allergies #16 grams spray,suspension levothyroxine 50 mcg tablet See Rx Instructions .Route 03/17/23 .COMPLEX #90 tabs omeprazole 40 mg capsule,delayed See Rx Instructions .Route 03/17/23 release .COMPLEX #90 caps cetirizine 10 mg tablet See Rx Instructions .Route 05/07/23 .COMPLEX #90 tabs cholecalciferol (vitamin D3) 50 50 mcg PO DAILY #90 caps 05/07/23 mcg (2,000 unit) capsule meloxicam 15 mg tablet See Rx Instructions .Route 05/19/23 .COMPLEX #30 tabs trazodone 50 mg tablet 50 mg PO QHS sleep #90 tabs 06/05/23 azelastine 137 mcg (0.1 %) nasal See Rx Instructions .Route 06/08/23 spray .COMPLEX #30 mL fluconazole 150 mg tablet 150 mg PO Q3D 2 doses #3 tabs 07/03/23 benzonatate 100 mg capsule 100 mg PO TID PRN cough #30 caps 07/07/23 buspirone 15 mg tablet 15 mg PO BID #60 tabs 07/07/23 calcium carbonate See Rx Instructions .Route 07/07/23 .COMPLEX #30 tabs tizanidine 4 mg tablet See Rx Instructions .Route 07/07/23 .COMPLEX #60 tabs Allergies Allergy/AdvReac Type Severity Reaction Status Date / Time venlafaxine [From Effexor] AdvReac Intermediate worsening Verified 07/03/23 11:54 depression vortioxetine AdvReac Intermediate nausea, Verified 07/03/23 11:54 [From Trintellix] anxiety cariprazine [From Vraylar] AdvReac Mild change in Verified 07/03/23 11:54 vision PFSH [facility] Disclaimer: The information contained in this section may have been updated after the patient was seen, as this information can be updated by other users. Medical History Allergies Anxiety Attention deficit hyperactivity disorder (ADHD) Depression Gastroesophageal reflux disease History of anemia History of gastroesophageal reflux (GERD) Hypothyroidism Intra-abdominal adhesions Kidney stone Menometrorrhagia Morbid obesity with BMI of 40.0-44.9, adult Pneumonia Sterilization Urinary tract infection Surgical History History of bilateral salpingectomy laparoscopy with lysis of adhesions and BS, 03/26/22 Hx of section x4 Family History Father Diabetes Thyroid disorder Mother COPD (chronic obstructive pulmonary disease) Thyroid disorder Social History Smoking Status: Current every day smoker tobacco type: cigarettes packs per day: 1 years smoked: 10 alcohol intake: current alcohol intake frequency: holidays/special occasions only substance use type: marijuana current occupational status: unemployed Travel in the last 8 weeks: Inside the [place] caffeine: No Other Medical History Have you received the Flu Vaccine for this season: No Have you received the Pneumonia Vaccine: No ROS Obtained: Yes All systems reviewed & no additional complaints except as documented Physical Exam General General appearance: alert Neck Neck exam: Present trachea midline Chest Chest inspection: Present normal inspection and symmetric chest wall rise Respiratory Respiratory exam: Present wheezes (Primarily right parasternal wheezing) and other; Absent respiratory distress, stridor, accessory muscle use or prolonged expiratory phase Cardiovascular Cardiovascular exam: Present normal rhythm, tachycardia and other (Pulses equal and symmetric in upper and lower extremities) Extremities Exam Extremities exam: Absent edema Neurological Exam Neurological exam: Present alert, oriented X3 and CN II-XII intact Skin Skin exam: Present warm and dry; Absent cyanosis, diaphoresis or pallor HEART Score HEART Score HEART Score assessment performed?: Yes HEART Score: 0 Critical Care Critical Care Time Critical Care Time: Yes (pulmonary) Attestation: On 03/29/24, the high probability of a clinically significant, sudden or life threatening deterioration of the following system(s) required my full and direct attention, intervention and personal management. The time I documented below is in addition to time spent performing reported procedures but includes the following listed in this critical care notation. Total Time Total Critical Care Time: 35 Medical Decision Making Medical Records Medical records reviewed: Yes I reviewed the patient's medical records. Jonathan Inquiry Pt receiving controlled substance: No Jonathan was queried for this patient: No Vital Signs Vital Signs: 03/29/24 20:36 03/29/24 20:39 03/29/24 21:00 Temperature 98.8 F Temperature Source Oral Pulse Rate 103 H 91 H Pulse Rate [Apical] 108 H Respiratory Rate 25 H 21 22 Blood Pressure 133/95 H 126/84 Blood Pressure [Right Arm] 133/95 H Blood Pressure Mean [Right Arm] 107 Blood Pressure Source [Right Arm] Manual Cuff/ Auscultation Blood Pressure Position [Right Arm] Supine 02 Sat by Pulse Oximetry 94 L 94 L 93 L Oxygen Delivery Method Room Air Nasal Cannula Nasal Cannula Oxygen Flow Rate (LPM) 2 2 Lab Data Labs: Lab Results 03/29/24 20:45: VBG pH 7.40, VBG pCO2 36.9, VBG pO2 41.1 H, VBG HCO3 22.1 L, VBG Total CO2 23.3, VBG O2 Saturation 77.8 H, VBG Base Excess -2.7 L, VBG Lactic Acid 1.8 03/29/24 20:51: WBC 9.1, RBC 5.48 H, Hgb 16.2, Hct 48.3 H, MCV 88.2, MCH 29.5, MCHC 33.5, RDW 14.4, Plt Count 194, MPV 9.9, Neut % (Auto) 63.4, Lymph % (Auto) 21.3, [place] % (Auto) 5.4, Eos % (Auto) 8.6, Baso % (Auto) 1.3, Neut # (Auto) 5.7, Lymph # (Auto) 1.9, [place] # (Auto) 0.5, Eos # (Auto) 0.8 H, Baso # (Auto) 0.1, PT 10.3, INR 0.91, APTT 26.1, D-Dimer 0.41, Sodium 138, Potassium 3.5, Chloride 108 H, Carbon Dioxide 21 L, Anion Gap 12.5, BUN 10, Creatinine 0.70, Estimated Creat Clear 99, Estimated GFR 96, Est GFR ( Amer) 117, Glucose 133 H, Calcium 9.3, Total Bilirubin 0.8, AST 23, ALT 18, Alkaline Phosphatase 82, Troponin I < 0.01, Total Protein 7.4 D, Albumin 4.4, Globulin 3.0, Albumin/Globulin Ratio 1.5 03/29/24 20:51 03/29/24 20:51 Response Orders (Tests/Meds): ED MEDICATIONS Discontinued Medications Generic Name Dose Route Start Last Admin Trade Name Magalys PRN Reason Stop Dose Admin Albuterol/Ipratropium 9 ml 03/29/24 20:44 03/29/24 21:20 Ipratropium/Albuterol 3 Ml Neb IH 03/29/24 20:45 9 ml ONCE ONE Administration Azithromycin 500 mg 03/29/24 21:05 03/29/24 21:21 Azithromycin 250mg Tablet PO 03/29/24 21:06 500 mg ONCE ONE Administration Ceftriaxone Sodium 2 gm/ 100 mls @ 200 mls/hr 03/29/24 21:05 03/29/24 21:21 Sodium Chloride IV 03/29/24 21:34 200 mls/hr ONCE ONE Administration Methylprednisolone Sodium Succinate 125 mg 03/29/24 20:44 03/29/24 21:22 Methylprednisolone Sod Succ 125mg Vial IV 03/29/24 20:45 125 mg ONCE ONE Administration ORDERS Category Date Time Status CXR 2 view (NOT portable) [XR chest 2V] Stat Exams 03/29/24 20:44 Completed Complete Blood Count Auto Diff Stat Lab 03/29/24 20:51 Completed Comprehensive Metabolic Panel Stat Lab 03/29/24 20:51 Results D-Dimer Stat Lab 03/29/24 20:51 Completed HIV (1&2) Antibody Rapid Stat Lab 03/29/24 20:51 Received Hep C Ab with Reflex to RNA Stat Lab 03/29/24 20:51 Received PT INR [Prothrombin Time INR] Stat Lab 03/29/24 20:51 Completed PTT [Activated Partial Thrombo Time] Stat Lab 03/29/24 20:51 Completed Procalcitonin Stat Lab 03/29/24 20:51 Results Troponin I Q3H Lab 03/29/24 23:45 Ordered Troponin I Q3H Lab 03/30/24 02:45 Ordered Troponin I Stat Lab 03/29/24 20:51 Results Blood Culture Stat Micro 03/29/24 21:14 Received Venous Blood Gas Stat RT 03/29/24 20:45 Completed MDM Narrative Medical Decision Narrative: 34-year-old female history of current everyday smoking, pneumonia multiple times in the past, anxiety, tubal ligation presenting with cough, malaise, fevers and chills. Patient states she has been getting sick over the past 3 weeks or so. Got worse over the past couple of days. She has been breaking out cold sweats, feeling that she is sweating, has not measured any objective temperatures and now she has been running fevers. No nausea or vomiting. She has substernal chest tightness that does not radiate, associated with cough and coughing more especially with deep inspiration. No DVT or PE risk factors. History was obtained via conversation with patient. On arrival, patient hemodynamically stable, alert, oriented x4, appropriate, GCS 15, moving all extremities spontaneously, pupils equal and reactive to light. Full physical exam performed and significant for patient appears uncomfortable. Afebrile, tachycardic and normotensive. Also tachypneic and mildly hypoxemic. Lungs with diffuse end expiratory wheezing, however she does have right sided parasternal deep, rhonchorous wheezes. Cardiac exam otherwise within normal limits. Differential includes pneumonia, pneumothorax, ACS, OH, PE, among others Patient was given DuoNebs, Solu-Medrol, empiric ceftriaxone and azithromycin for symptomatic management and correction of underlying abnormalities. Patient placed on continuous cardiac monitoring and continuous pulse ox with initial blood pressure 133/95, heart rate 108, saturation 91% on room air. 96% on 2 L nasal cannula. Independent interpretation of EKG shows sinus rhythm 87 beats a minute. OR 160, QRS 85, QTc 429. No ST or T wave changes concerning for acute ischemia. Borderline right axis deviation. Workup independently interpreted and significant for nonactionable CBC. Patient's coags normal. D-dimer negative at 0.41. VBG with normal pH, CO2, bicarb, oxygen normal. Lactate negative. Chemistry nonactionable overall. LFTs nonactionable. On independent interpretation of imaging, patient has what appears to be right lower lobe pneumonia. See radiology read for full review of final results. On reevaluation, patient resting comfortably. Given patient presentation, workup, history, this most likely represents right lower lobe pneumonia with associated hypoxemic respiratory failure. Because patient high risk for clinical decompensation, deemed appropriate for inpatient admission. Results were relayed to patient who voiced understanding and patient was agreeable to inpatient admission and management. Patient was admitted to the hospital for further definitive management. Pathology Technician disclaimer Much of this encounter note is an electronic breakfast supervisor spoken language to printed text. Electronic breakfast supervisor of the spoken language may permit errors. Although I have reviewed the note, some errors may still exist.
[2024-03-29 21:13] LABS: Lactate Venous 1.8 mmol/L (0.4-2.0); VBG Base Excess -2.7 mmol/L (-2.4-2.3); VBG HCO3 22.1 mmol/L (23-30); VBG Oxygen Saturation 77.8 % (50-70); VBG PCO2 36.9 mmol/L (35-51); VBG PO2 41.1 mmol/L (28-40); VBG Total CO2 23.3 mmol/L (23-27)
[2024-03-29 21:17] LABS: Basophils # 0.1 K/mm3 (0-0.2); Basophils % 1.3 % (0.1-2.0); Eosinophils # 0.8 K/mm3 (0.0-0.4); Eosinophils % 8.6 % (0.1-12.0); Hematocrit 48.3 % (37.0-47.0); Hemoglobin 16.2 g/dL (12.2-16.2); Lymphocytes # 1.9 K/mm3 (0.7-4.5); Lymphocytes % 21.3 % (10-50); Mean Corpuscular HGB Conc 33.5 g/dL (31.8-35.4); Mean Corpuscular Hemoglobin 29.5 pg (27.0-31.2); Mean Corpuscular Volume 88.2 fl (81-99); Mean Platelet Volume 9.9 fl (7.4-10.4); Monocytes # 0.5 K/mm3 (0.1-1.0); Monocytes % 5.4 % (1.7-9.3); Neutrophils # 5.7 K/mm3 (1.8-7.8); Neutrophils % 63.4 % (37.0-80.0); Platelet Count 194 K/mm3 (142-424); Red Blood Count 5.48 M/mm3 (4.20-5.40); Red Cell Distribution Width 14.4 % (11.5-17.5); White Blood Count 9.1 K/mm3 (4.8-10.8)
[2024-03-29] MEDS: IPRATROPIUM/ALBUTEROL 3 ML NEB 9 ML IH (21:20)
[2024-03-29 21:21] LABS: Chloride 108 mmol/L (98-107)
[2024-03-29] MEDS: CEFTRIAXONE SODIUM 2 GM in 0.9 % SODIUM CHLORIDE 100 ML IV (21:21)
[2024-03-29] MEDS: AZITHROMYCIN 250MG TABLET 500 MG PO (21:21)
[2024-03-29 21:22] LABS: Albumin Level 4.4 g/dl (3.5-5.0); Potassium 3.5 mmoL/L (3.5-5.1); Sodium 138 mmol/L (136-145)
[2024-03-29] MEDS: METHYLPREDNISOLONE SOD SUCC 125MG VIAL 125 MG IV (21:22)
[2024-03-29 21:24] LABS: Blood Urea Nitrogen 10 mg/dl (7-17); Creatinine Clearance Estimated 99 mL/min (50-200); Estimated Glomerular Filt Rate 96 ml/min (>60); GFR (African American) 117 ML/MIN (>60)
[2024-03-29 21:25] LABS: Alanine Aminotransferase 18 U/L (12-78); Albumin/Globulin Ratio 1.5 (1.1-1.8); Alkaline Phosphatase 82 U/L (38-126); Anion Gap 12.5 mEq/L (5-15); Aspartate Amino Transferase 23 U/L (14-36); Bilirubin,Total 0.8 mg/dl (0.2-1.3); Calcium 9.3 mg/dl (8.4-10.2); Carbon Dioxide 21 mmol/L (22.0-30.0); Glucose 133 mg/dl (74-100); Total Protein,Serum 7.4 g/dl (6.3-8.2)
--- NOTE | 2024-03-29 21:26 | ECG_ITS ---
APPROVED REPORT Exam: Resting ECG HR:87 bpm ECG Measurements Heart Rate 87 AXES NH 160 P 60 QRSd 85 QRS 94 QT 385 T 51 QTc 429 Conclusion Sinus rhythm Right axis deviation Electronically signed by : ABHINAV CHUNG, 03/29/2024 23:09:07
[2024-03-29 21:27] LABS: Activated Partial Thrombo Time 26.1 seconds (22.8-30.6); INR 0.91 (0.9-1.1); Prothrombin Time 10.3 seconds (10.1-12.5)
[2024-03-29 21:42] LABS: D-Dimer 0.41 ug/mL (0.0-0.5)
[2024-03-29 21:52] LABS: Troponin I < 0.01 ng/ml (0.00-0.034)
[2024-03-29 21:56] LABS: Procalcitonin 0.035 ng/mL (0.0-2.0)
[2024-03-29 22:19] LABS: HIV (1&2) Antibody Rapid NONREACTIVE (NONREACTIVE)
--- NOTE | 2024-03-29 22:38 | PC.NURSE ---
unable to call house for bed request at this time due to rapid response on the floor.
--- NOTE | 2024-03-29 22:45 | PC.NURSE ---
Called [facility] for a bed assignment.
--- NOTE | 2024-03-29 22:57 | EXP.HP ---
History of Present Illness *Admission Date: 03/29/24 *Reason for visit:: SOB *History of present illness: Patient is a 34-year-old female with past medical history of hypothyroidism, GERD, ADHD who presents to the hospital due to cough and shortness of breath. According to the patient she has not been feeling well for past 3 to 4 weeks, she has associated fevers chills along with productive cough. According to the patient she is not on oxygen at home, she also denies tobacco use. Patient otherwise denied diarrhea constipation. She mentions she has a history of recurrent urinary tract infections PFSH [facility] Disclaimer: The information contained in this section may have been updated after the patient was seen, as this information can be updated by other users. Medical History (Updated 03/30/24 @ 04:22 by Joseph Gramajo MD) SOB (shortness of breath) Menometrorrhagia Intra-abdominal adhesions Urinary tract infection Kidney stone Pneumonia History of gastroesophageal reflux (GERD) Allergies History of anemia Sterilization Morbid obesity with BMI of 40.0-44.9, adult Attention deficit hyperactivity disorder (ADHD) Gastroesophageal reflux disease Depression Anxiety Hypothyroidism Surgical History History of bilateral salpingectomy Hx of section Family History Father Diabetes Thyroid disorder Mother COPD (chronic obstructive pulmonary disease) Thyroid disorder Social History (Updated 03/30/24 @ 03:43 by Jordana Jensen RN) Smoking Status: Current every day smoker tobacco type: cigarettes packs per day: 1 years smoked: 10 alcohol intake: current alcohol intake frequency: holidays/special occasions only substance use type: marijuana current occupational status: unemployed Travel in the last 8 weeks: Inside the [place] caffeine: No Other Medical History Have you received the Flu Vaccine for this season: No Have you received the Pneumonia Vaccine: No Review of Systems Review of Systems Review of systems:: pertinent systems reviewed and negative unless documented below Meds Home Medications and Allergies Home Medications ?Medication ?Instructions ?Recorded ?Confirmed ?Type albuterol sulfate 90 mcg/actuation 2 puff inhalation QID PRN 04/02/22 03/30/24 Rx aerosol inhaler shortness of breath or wheezing #8.5 grams ergocalciferol (vitamin D2) 1,250 1,250 mcg PO WEEKLY #14 caps 12/29/22 07/03/23 Rx mcg (50,000 unit) capsule fluticasone propionate 50 See Rx Instructions .Route 01/28/23 07/03/23 Rx mcg/actuation nasal .COMPLEX allergies #16 grams spray,suspension levothyroxine 50 mcg tablet See Rx Instructions .Route 03/17/23 03/30/24 Rx .COMPLEX #90 tabs omeprazole 40 mg capsule,delayed See Rx Instructions .Route 03/17/23 03/30/24 Rx release .COMPLEX #90 caps cetirizine 10 mg tablet See Rx Instructions .Route 05/07/23 03/30/24 Rx .COMPLEX #90 tabs cholecalciferol (vitamin D3) 50 50 mcg PO DAILY #90 caps 05/07/23 07/03/23 Rx mcg (2,000 unit) capsule inhalational spacing device #1 ea 05/07/23 07/03/23 [facility] spacer) meloxicam 15 mg tablet See Rx Instructions .Route 05/19/23 03/30/24 Rx .COMPLEX #30 tabs trazodone 50 mg tablet 50 mg PO QHS sleep #90 tabs 06/05/23 03/30/24 Rx azelastine 137 mcg (0.1 %) nasal See Rx Instructions .Route 06/08/23 07/03/23 Rx spray .COMPLEX #30 mL fluconazole 150 mg tablet 150 mg PO Q3D 2 doses #3 tabs 07/03/23 07/03/23 Rx benzonatate 100 mg capsule 100 mg PO TID PRN cough #30 caps 07/07/23 03/30/24 Rx buspirone 15 mg tablet 15 mg PO BID #60 tabs 07/07/23 03/30/24 Rx calcium carbonate See Rx Instructions .Route 07/07/23 Rx .COMPLEX #30 tabs tizanidine 4 mg tablet See Rx Instructions .Route 07/07/23 03/30/24 Rx .COMPLEX #60 tabs New Prescriptions to Start Prescriptions: Allergies Allergy/AdvReac Type Severity Reaction Status Date / Time venlafaxine [From Effexor] AdvReac Intermediate worsening Verified 07/03/23 11:54 depression vortioxetine AdvReac Intermediate nausea, Verified 07/03/23 11:54 [From Trintellix] anxiety cariprazine [From Vraylar] AdvReac Mild change in Verified 07/03/23 11:54 vision Exam Data for Last 24 hours Vital signs and Labs for Last 24 Hours: Temp Pulse Resp BP Pulse Ox O2 Del Method O2 Flow Rate 98.8 F 91 H 22 126/84 93 L Nasal Cannula 2 03/29/24 20:36 03/29/24 21:00 03/29/24 21:00 03/29/24 21:00 03/29/24 21:00 03/29/24 21:00 03/29/24 21:00 Laboratory Results - last 24 hr 03/29/24 20:45: VBG pH 7.40, VBG pCO2 36.9, VBG pO2 41.1 H, VBG HCO3 22.1 L, VBG Total CO2 23.3, VBG O2 Saturation 77.8 H, VBG Base Excess -2.7 L, VBG Lactic Acid 1.8 03/29/24 20:51: WBC 9.1, RBC 5.48 H, Hgb 16.2, Hct 48.3 H, MCV 88.2, MCH 29.5, MCHC 33.5, RDW 14.4, Plt Count 194, MPV 9.9, Neut % (Auto) 63.4, Lymph % (Auto) 21.3, [place] % (Auto) 5.4, Eos % (Auto) 8.6, Baso % (Auto) 1.3, Neut # (Auto) 5.7, Lymph # (Auto) 1.9, [place] # (Auto) 0.5, Eos # (Auto) 0.8 H, Baso # (Auto) 0.1, PT 10.3, INR 0.91, APTT 26.1, D-Dimer 0.41, Sodium 138, Potassium 3.5, Chloride 108 H, Carbon Dioxide 21 L, Anion Gap 12.5, BUN 10, Creatinine 0.70, Estimated Creat Clear 99, Estimated GFR 96, Est GFR ( Amer) 117, Glucose 133 H, Calcium 9.3, Total Bilirubin 0.8, AST 23, ALT 18, Alkaline Phosphatase 82, Troponin I < 0.01, Total Protein 7.4 D, Albumin 4.4, Globulin 3.0, Albumin/Globulin Ratio 1.5, Procalcitonin 0.035, HIV 1&2 Antibody Rapid Nonreactive I & O for Last 24 hours: Intake & Output 03/26/24 03/27/24 03/28/24 03/29/24 23:59 22:59 23:59 23:59 Weight 210 kg Constitutional Constitutional: no acute distress *Routine HEENT Exam Head: Present normocephalic Eye: Present EOMI and PERRL ENT: Present mucous membranes moist *Routine Neck Exam Neck: Present supple; Absent lymphadenopathy *Routine Respiratory Exam Respiratory: Present CTA bilaterally *Routine Cardiovascular Exam Cardiovascular: Present RRR *Routine Abdominal Exam Abdominal: Present soft and normoactive bowel sounds; Absent tenderness *Routine Rectal Exam Rectal:: deferred *Routine Genitalia Exam Genitalia:: deferred *Routine Extremities Exam Extremities: Absent cyanosis, clubbing or edema *Routine Skin Exam Skin: Present warm; Absent rash *Routine Neurological Exam Neurological: Present alert and oriented X3 Assessment and Plan *Assessment and plan (1) Acute hypoxemic respiratory failure: Status: Acute Category: Medical Code(s): J96.01 - Acute respiratory failure with hypoxia (2) Pneumonia: Status: Acute Qualifiers: Laterality: right Lung location: lower lobe of lung Category: Medical Code(s): J18.9 - Pneumonia, unspecified organism (3) Hypothyroidism: Status: Chronic Qualifiers: Hypothyroidism type: unspecified Qualified Code(s): E03.9 - Hypothyroidism, unspecified Category: Medical Code(s): E03.9 - Hypothyroidism, unspecified (4) Morbid obesity with BMI of 40.0-44.9, adult: Status: Acute Category: Medical Code(s): E66.01 - Morbid (severe) obesity due to excess calories; Z68.41 - Body mass index [BMI] 40.0-44.9, adult Plan Patient is a 34-year-old female with past medical history of hypothyroidism, GERD, ADHD who presents to the hospital due to cough and shortness of breath. According to the patient she has not been feeling well for past 3 to 4 weeks, she has associated fevers chills along with productive cough. According to the patient she is not on oxygen at home, she also denies tobacco use. Patient otherwise denied diarrhea constipation. She mentions she has a history of recurrent urinary tract infections Assessment and plan Shortness of breath cough likely secondary to right lower lobe pneumonia UA suggestive of UTI Start Rocephin, azithromycin Chest x-ray reviewed does show right lower lobe opacities Check procalcitonin Check blood cultures Check urine Legionella, strep antigen Check MRSA nasal swab Follow-up on urine culture Chronic medical conditions ADHD Morbid obesity complicating all care GERD -Resume home medications including PPI DVT prophylaxis-heparin
[2024-03-29] MEDS: HEPARIN SODIUM 5,000 UNIT/ML VIAL 5000 UNIT SUBCUT (23:43)
[2024-03-30] VITALS (12 sets, daily range): BP systolic 111–128; BP diastolic 66–80; PULSE 68–108; RESP 16–22; TEMP 36.6–36.7; O2SAT 86–98; BMI 34.4
[2024-03-30 00:23] LABS: Troponin I < 0.01 ng/ml (0.00-0.034)
[2024-03-30] MEDS: ACETAMINOPHEN 325MG TAB 650 MG PO ×2 (00:35→05:35)
[2024-03-30] MEDS: ONDANSETRON 4MG/2ML VIAL 4 MG IV ×2 (00:36→13:54)
--- NOTE | 2024-03-30 01:44 | PC.NURSE ---
Addendum entered by Jordana Jensen RN 03/30/24 01:54: Patient reported having an increased headache, describing it as a band around her head. Dr Gramajo was paged at this time. A new order for Naproxen 250 mg PO ONCE was given. Original Note: At this time, lab was called to check on urine sample. An order for a urinalysis was put in to run the urine. Dr Gramajo was also paged at this time to inform him about the patient's frequent alcohol intake and CIWA score of 4.
[2024-03-30 01:51] LABS: Microscopic, Urine URINE MICROSCOPIC (MICROSCOPIC)
[2024-03-30] MEDS: NAPROXEN 500MG TABLET 250 MG PO ×2 (02:05→09:16)
[2024-03-30 02:09] LABS: Appearance,Urine CLEAR (Clear); Blood, Urine 2+ (Negative); Color,Urine YELLOW (Yellow); Glucose,Urine (UA) Negative (Negative); Ketones,Urine TRACE (Negative); Leukocyte Esterase,Urine 1+ (Negative); Nitrate,Urine POSITIVE (Negative); Protein,Urine 1+ (Negative); Specific Gravity, Urine >= 1.030 (1.005-1.030); Urobilinogen,Urine 0.2 EU/dl (0.2)
[2024-03-30 02:20] LABS: Bilirubin,Urine 1+ (Negative)
[2024-03-30 02:24] LABS: WBC,Urine 20-50 #/hpf (0-3)
[2024-03-30 02:25] LABS: Bacteria,Urine 2+ /lpf; Mucus,Urine 1+ /lpf; Transitional Epi Cells,Urine OCC #/lpf (0-3)
[2024-03-30 03:40] LABS: Troponin I < 0.01 ng/ml (0.00-0.034)
[2024-03-30] MEDS: CEFTRIAXONE 1 GM 1 GM in 0.9 % SODIUM CHLORIDE 50 ML IV (05:30)
[2024-03-30] MEDS: AZITHROMYCIN 500 MG in 0.9 % SODIUM CHLORIDE 250 ML 250 MG IV (06:00)
--- NOTE | 2024-03-30 06:38 | PC.NURSE ---
Patient stated that her headache has not been improving with Tylenol, nor with the one time dose of Naproxen this shift. At this time, she stated that her headache is starting to get worse. She explained that the persistent headaches this shift were new to her and not a normal occurrence. She rated her pain as a level 7 and is [address] tearful. Dr Gramajo was paged for interventions.
[2024-03-30 07:28] LABS: Anion Gap 12.9 mEq/L (5-15); Blood Urea Nitrogen 9 mg/dl (7-17); Calcium 9.2 mg/dl (8.4-10.2); Carbon Dioxide 21 mmol/L (22.0-30.0); Chloride 108 mmol/L (98-107); Creatinine Clearance Estimated 193 mL/min (50-200); Estimated Glomerular Filt Rate 115 ml/min (>60); GFR (African American) 139 ML/MIN (>60); Glucose 122 mg/dl (74-100); Potassium 3.9 mmoL/L (3.5-5.1); Sodium 138 mmol/L (136-145)
--- NOTE | 2024-03-30 07:31 | PC.NURSE ---
Ms Nalini Taylor was newly admitted last night on behalf of pneumonia. She has complained of a persistent headache throughout the night; she was given Tylenol and a one time dose of Naproxen per MAR, both of which have not sufficiently relieved her pain (see prior notes). She complained of nausea once this shift and was given zofran; thus far, she has not complained of anymore nausea or vomiting. She also complained once of perspiration and anxiety earlier this shift. She was scored once by me on the CIWA scale (score 4) on behalf of her frequently reported alcohol intake. She also stated that she has a history of occasional blackouts where she temporarily loses hearing and vision. Dr Gramajo was informed of this. Upon auscultation, she had diminished lungs sounds and active bowel sounds. She reported having diarrhea since feeling sick. Patient was observed to be awake for most of the night due to her worsening headache. Her partner has remained at the bedside through the night. IV antibiotics were started and given this shift. She is currently on 3.5 L of oxygen via nasal cannula with oxygen saturations in the low 90s. Patient's oxygen saturations were noticed to drop quickly when patient tended to take her cannula off; patient was educated about keeping her cannula on. Patient ambulates to the bathroom independently with her partner by her side; she tolerates it well. At this time, the patient is resting in bed with an ice pack by her side. She has been drinking adequate fluids. Call light within reach. Seizure pads in place per precautions.
[2024-03-30 08:14] LABS: Basophils % 0.3 % (0.1-2.0); Eosinophils % 0.1 % (0.1-12.0); Hemoglobin 15.4 g/dL (12.2-16.2); Lymphocytes # 0.6 K/mm3 (0.7-4.5); Lymphocytes % 11.6 % (10-50); Mean Corpuscular HGB Conc 33.5 g/dL (31.8-35.4); Mean Corpuscular Hemoglobin 30.8 pg (27.0-31.2); Mean Corpuscular Volume 92.1 fl (81-99); Mean Platelet Volume 10.6 fl (7.4-10.4); Monocytes # 0.1 K/mm3 (0.1-1.0); Monocytes % 1.9 % (1.7-9.3); Neutrophils # 4.8 K/mm3 (1.8-7.8); Neutrophils % 86.1 % (37.0-80.0); Platelet Count 187 K/mm3 (142-424); Red Blood Count 4.99 M/mm3 (4.20-5.40); Red Cell Distribution Width 14.2 % (11.5-17.5); White Blood Count 5.5 K/mm3 (4.8-10.8)
[2024-03-30 08:18] LABS: MANUAL DIFFERENTIAL MANUAL DIFFERENTIAL (MANUAL DIFF)
[2024-03-30 09:12] LABS: Lymphocytes % 13 % (10-50); Neutrophils % 87 % (42-76); Platelet Estimate Normal; RBC Morphology Normal; Total Cells Counted 100
[2024-03-30] MEDS: BUSPIRONE HCL 10 MG TABLET 15 MG PO (09:14)
[2024-03-30] MEDS: HEPARIN SODIUM 5,000 UNIT/ML VIAL 5000 UNIT SUBCUT (09:14)
--- NOTE | 2024-03-30 09:58 | HMH.PHAINT1 ---
Pharmacy Intervention Comments: Home medication list verified with pt interview
--- NOTE | 2024-03-30 10:40 | CT_ITS ---
FINAL REPORT CLINICAL HISTORY: DYSPNEA FINDINGS: Thin section axial CT images of the chest were obtained with contrast. 3D reformatted images were also obtained. This study was performed with techniques to keep radiation doses as low as reasonably achievable (ALARA). Individualized dose reduction techniques using automated exposure control or adjustment of mA and/or kV according to the patient's size were employed. There is no evidence of pulmonary embolism. There is no evidence of thoracic aortic aneurysm or dissection. There is mild mediastinal adenopathy, likely reactive. Small hiatal hernia is identified. There is no evidence of pulmonary mass or nodule. No localized inflammatory process is seen within the lungs. There is mild scarring in the left upper lobe. Calcified granuloma is seen in the right lung base. Limited images of the upper abdomen are unremarkable. IMPRESSION: No evidence of pulmonary embolism. No mass or localized inflammatory process. Reviewed, Interpreted and Dictated by Blair Lomax III, MD Transcribed by Mulu Mckeon Authenticated and [facility]
[2024-03-30] MEDS: SODIUM CHLORIDE 0.9% 10ML SYR (RAD ONLY) 10 ML IV (10:56)
[2024-03-30] MEDS: IOPAMIDOL-370 (76%);100ML BOTTLE 70 ML IV (10:56)
[2024-03-30] MEDS: 0.9 % SODIUM CHLORIDE 50 ML VIAL IV (10:56)
[2024-03-30] MEDS: SODIUM CHLORIDE 3% 15ML NEB 3 ML IH (11:07)
[2024-03-30] MEDS: HYDROCODONE/APAP 5/325 MG TABLET 1 TAB PO (11:26)
[2024-03-30] MEDS: ENOXAPARIN 100MG/ML SYRINGE 90 MG SUBCUT (11:27)
[2024-03-30] MEDS: IPRATROPIUM/ALBUTEROL 3 ML NEB IH ×3 (12:31→23:55)
[2024-03-30 12:52] LABS: Thyroid Stimulating Hormone 0.73 uIU/mL (0.465-4.68)
[2024-03-30] MEDS: UBROGEPANT 50MG TABLET 100 MG PO (13:19)
--- NOTE | 2024-03-30 16:48 | PC.NURSE ---
AOX4, 2LNC FOR O2 SUPPORT. C/O OF HEADACHE T/O SHIFT. MEDICATED PER JUL. TREATED FOR N/V ONCE THIS SHIFT.
--- NOTE | 2024-03-30 18:19 | EXP.ACUTE.PN ---
Subjective *Date: 03/30/24 *Time: 18:19 Interval history: Patient continues to require oxygen, on 2 L this morning. Room air sats in the mid 80s. Will obtain chest CT today. Continuing antibiotics. Afebrile overnight. White count remains normal. Quite anxious on exam. States she feels better with oxygen on. Has been having chest tightness since December. Medical Exam Vital signs and Labs for Last 24 Hours: Vital Signs Temp Pulse Pulse Resp BP BP Pulse Ox 03/30/24 18:15 89 03/30/24 18:15 94 H 03/30/24 16:13 03/30/24 16:00 91 L 03/30/24 16:00 80 03/30/24 15:28 98.1 F 82 19 111/66 98 03/30/24 15:00 03/30/24 13:00 03/30/24 12:36 89 L 03/30/24 12:34 88 03/30/24 12:34 90 03/30/24 12:00 90 03/30/24 12:00 98 F 90 22 128/79 93 L 03/30/24 11:08 76 18 03/30/24 11:00 03/30/24 09:00 03/30/24 08:00 86 L 03/30/24 08:00 03/30/24 08:00 90 03/30/24 07:47 97.9 F 83 21 125/80 93 L 03/30/24 07:00 03/30/24 05:00 03/30/24 04:00 90 03/30/24 04:00 97.8 F 108 H 16 125/71 92 L 03/30/24 03:00 03/30/24 01:00 03/29/24 23:39 97.9 F 84 16 138/80 92 L 03/29/24 23:30 84 16 92 L 03/29/24 23:22 98.6 F 73 20 127/91 H 03/29/24 21:00 91 H 22 126/84 93 L 03/29/24 20:44 90 03/29/24 20:39 103 H 21 133/95 H 94 L 03/29/24 20:36 98.8 F 108 H 25 H 133/95 H 94 L O2 Del Method O2 Flow Rate 03/30/24 18:15 03/30/24 18:15 03/30/24 16:13 Nasal Cannula 2 03/30/24 16:00 Nasal Cannula 2 03/30/24 16:00 03/30/24 15:28 Nasal Cannula 2 03/30/24 15:00 Nasal Cannula 2 03/30/24 13:00 Nasal Cannula 2 03/30/24 12:36 Room Air 2 03/30/24 12:34 03/30/24 12:34 03/30/24 12:00 03/30/24 12:00 Nasal Cannula 2 03/30/24 11:08 03/30/24 11:00 Nasal Cannula 2 03/30/24 09:00 Nasal Cannula 2 03/30/24 08:00 Room Air 03/30/24 08:00 Nasal Cannula 2 03/30/24 08:00 03/30/24 07:47 Room Air 03/30/24 07:00 Nasal Cannula 3.5 03/30/24 05:00 Nasal Cannula 3.5 03/30/24 04:00 03/30/24 04:00 Nasal Cannula 3.5 03/30/24 03:00 Room Air 03/30/24 01:00 Nasal Cannula 2 03/29/24 23:39 Nasal Cannula 2 03/29/24 23:30 Nasal Cannula 2 03/29/24 23:22 Nasal Cannula 2 03/29/24 21:00 Nasal Cannula 2 03/29/24 20:44 03/29/24 20:39 Nasal Cannula 2 03/29/24 20:36 Room Air Intake and Output 03/30/24 03/30/24 03/30/24 07:59 15:59 23:59 Intake Total 200 / 860 660 / 860 Output Total 0 / 0 0 / 0 0 / 0 Balance 200 / 860 660 / 860 0 / 860 Intake: Intake, Oral Amount 200 / 860 660 / 860 Output: Output, Urine Amount 0 / 0 0 / 0 0 / 0 Other: Number of Unmeasured Voids 3 1 1 Weight 91.535 kg Patient Weight 03/30/24 23:59 Weight 91.535 kg Laboratory Results - last 24 hr 03/29/24 20:45: VBG pH 7.40, VBG pCO2 36.9, VBG pO2 41.1 H, VBG HCO3 22.1 L, VBG Total CO2 23.3, VBG O2 Saturation 77.8 H, VBG Base Excess -2.7 L, VBG Lactic Acid 1.8 03/29/24 20:51: WBC 9.1, RBC 5.48 H, Hgb 16.2, Hct 48.3 H, MCV 88.2, MCH 29.5, MCHC 33.5, RDW 14.4, Plt Count 194, MPV 9.9, Neut % (Auto) 63.4, Lymph % (Auto) 21.3, [place] % (Auto) 5.4, Eos % (Auto) 8.6, Baso % (Auto) 1.3, Neut # (Auto) 5.7, Lymph # (Auto) 1.9, [place] # (Auto) 0.5, Eos # (Auto) 0.8 H, Baso # (Auto) 0.1, PT 10.3, INR 0.91, APTT 26.1, D-Dimer 0.41, Sodium 138, Potassium 3.5, Chloride 108 H, Carbon Dioxide 21 L, Anion Gap 12.5, BUN 10, Creatinine 0.70, Estimated Creat Clear 99, Estimated GFR 96, Est GFR ( Amer) 117, Glucose 133 H, Calcium 9.3, Total Bilirubin 0.8, AST 23, ALT 18, Alkaline Phosphatase 82, Troponin I < 0.01, Total Protein 7.4 D, Albumin 4.4, Globulin 3.0, Albumin/Globulin Ratio 1.5, Procalcitonin 0.035, HIV 1&2 Antibody Rapid Nonreactive 03/29/24 23:45: Troponin I < 0.01 03/30/24 00:00: Urine Color Yellow, Urine Appearance Clear, Urine pH 6.0, Ur Specific [place] >= 1.030, Urine Protein 1+ A, Urine Glucose (UA) Negative, Urine Ketones Trace, Urine Blood 2+ A, Urine Nitrate Positive, Urine Bilirubin 1+ A, Urine Urobilinogen 0.2, Ur Leukocyte Esterase 1+ A, Urine RBC 5-10, Urine WBC 20-50, Ur Squamous Epith Cells 3-5, Ur Transition Epith Cell Occ, Urine Bacteria 2+, Urine Mucus 1+ 03/30/24 02:45: Troponin I < 0.01 03/30/24 06:26: WBC 5.5 D, RBC 4.99, Hgb 15.4, Hct 46.0, MCV 92.1, MCH 30.8, MCHC 33.5, RDW 14.2, Plt Count 187, MPV 10.6 H, Neut % (Auto) 86.1 H, Lymph % (Auto) 11.6, [place] % (Auto) 1.9, Eos % (Auto) 0.1, Baso % (Auto) 0.3, Neut # (Auto) 4.8, Lymph # (Auto) 0.6 L, [place] # (Auto) 0.1, Eos # (Auto) 0.0, Baso # (Auto) 0.0, Total Counted 100, Neutrophils % (Manual) 87 H, Lymphocytes % (Manual) 13, Platelet Estimate Normal, RBC Morphology Normal, Sodium 138, Potassium 3.9, Chloride 108 H, Carbon Dioxide 21 L, Anion Gap 12.9, BUN 9, Creatinine 0.60, Estimated Creat Clear 193, Estimated GFR 115, Est GFR ( Amer) 139, Glucose 122 H, Calcium 9.2, TSH 0.73 I & O for Labs for Last 24 Hours: Intake & Output 03/27/24 03/28/24 03/29/24 03/30/24 22:59 23:59 23:59 23:59 Intake Total 860 / 860 Output Total 0 / 0 Balance 860 / 860 Weight 91.535 kg 91.535 kg Microbiology Reports for the Last 24 Hours: Microbiology 03/30/24 00:00 Urine,Clean Catch Urine Culture - Preliminary Gram Negative Rods Constitutional: Present no acute distress, obese and cooperative Head: Present atraumatic and normocephalic ENT: Present normal exam Respiratory: Present wheezes (End expiratory) and normal respiratory effort; Absent prolonged expiratory phase, rhonchi or crackles Cardiac: Present Reg Rate and Rhythm GI: Present normal bowel sounds; Absent tenderness Extremities: Present normal inspection and full ROM Skin: Present intact; Absent erythema Neuro: Present Grossly Intact, alert, awake, oriented x 3 and moves all extremities Additional Findings:: Patient appears anxious Assessment and Plan *Assessment and plan (1) Acute hypoxemic respiratory failure: Status: Acute Category: Medical Code(s): J96.01 - Acute respiratory failure with hypoxia (2) Pneumonia: Status: Acute Qualifiers: Laterality: right Lung location: lower lobe of lung Category: Medical Code(s): J18.9 - Pneumonia, unspecified organism (3) Hypothyroidism: Status: Chronic Qualifiers: Hypothyroidism type: unspecified Qualified Code(s): E03.9 - Hypothyroidism, unspecified Category: Medical Code(s): E03.9 - Hypothyroidism, unspecified (4) Morbid obesity with BMI of 40.0-44.9, adult: Status: Acute Category: Medical Code(s): E66.01 - Morbid (severe) obesity due to excess calories; Z68.41 - Body mass index [BMI] 40.0-44.9, adult (5) Bronchitis: Status: Acute Category: Medical Code(s): J40 - Bronchitis, not specified as acute or chronic (6) Cough: Status: Acute Category: Medical Code(s): R05.9 - Cough, unspecified (7) Anxiety: Status: Chronic Category: Medical Code(s): F41.9 - Anxiety disorder, unspecified Plan Patient is a 34-year-old female with past medical history of hypothyroidism, GERD, ADHD who presents to the hospital due to cough and shortness of breath. According to the patient she has not been feeling well for past 3 to 4 weeks, she has associated fevers chills along with productive cough. According to the patient she is not on oxygen at home. Further reports today, she smokes a pack of cigarettes a week. Also occasionally smokes marijuana. States her cough today has been dry. Feeling less short of breath with oxygen on. Due to unclear etiology of her dyspnea and hypoxia, will obtain CTA of her chest. Problems addressed as follows: Acute hypoxemic respiratory failure Pneumonia versus bronchitis -Initiated on Rocephin and azithromycin. Will discontinue and transition to levofloxacin 750 mg daily for 5 days given dual infection with UTI -Chest CT personally reviewed, no obvious large central PEs. Do not appreciate any airspace disease or consolidation. Minor bronchial thickening. -Received 90 mg dose Lovenox this morning. Further anticoagulation pending formal read on CTA -Continue supplemental oxygen, wean as tolerated. Goal sats greater 90% -Transition to DuoNebs scheduled every 6 hours -Procalcitonin unremarkable at 0.035 -Blood cultures pending -Received steroids in the ER, feels they made her anxious. Hold at this time. Reevaluate need tomorrow Urinary tract infection: Urinalysis grossly abnormal with 20-50 white cells, 2+ bacteria, nitrite and leuk esterase positive. Culture growing gram-negative rods. Levaquin as above Reported history of hypothyroidism. TSH obtained, 0.73. Supposed to be on levothyroxine at home. Has not been taking due to no insurance. Will discontinue at this time given normal TSH. Chronic medical conditions ADHD/anxiety Morbid obesity complicating all care GERD -Continue pantoprazole 40 mg IV nightly -Ubrelvy x 1 today 100 mg for headache -Will consider further treatment for anxiety as this compounds her symptoms above DVT prophylaxis-heparin Full code Regular diet
[2024-03-30] MEDS: PANTOPRAZOLE 40MG TABLET 40 MG PO (20:27)
[2024-03-31] VITALS: BP 128/72; PULSE 60; PULSE 89; RESP 18; TEMP 36.4; O2SAT 100; O2SAT 99
[2024-03-31 04:00] VITALS: BP 108/63; PULSE 60; PULSE 77; RESP 16; TEMP 36.6; O2SAT 98; BMI 36.3
[2024-03-31] MEDS: ONDANSETRON 4MG/2ML VIAL 4 MG IV (04:59)
[2024-03-31] MEDS: BENZONATATE 100MG CAPSULE 100 MG PO (05:12)
[2024-03-31] MEDS: IPRATROPIUM/ALBUTEROL 3 ML NEB IH ×2 (05:19→11:21)
[2024-03-31 05:20] VITALS: PULSE 71; PULSE 73; O2SAT 90
[2024-03-31 07:05] LABS: Basophils # 0.1 K/mm3 (0-0.2); Basophils % 0.8 % (0.1-2.0); Eosinophils # 0.1 K/mm3 (0.0-0.4); Eosinophils % 0.6 % (0.1-12.0); Hematocrit 43.6 % (37.0-47.0); Lymphocytes # 2.6 K/mm3 (0.7-4.5); Mean Corpuscular HGB Conc 32.2 g/dL (31.8-35.4); Mean Corpuscular Hemoglobin 29.5 pg (27.0-31.2); Mean Corpuscular Volume 91.7 fl (81-99); Mean Platelet Volume 9.8 fl (7.4-10.4); Monocytes # 0.4 K/mm3 (0.1-1.0); Monocytes % 5.1 % (1.7-9.3); Neutrophils # 5.1 K/mm3 (1.8-7.8); Neutrophils % 61.6 % (37.0-80.0); Platelet Count 175 K/mm3 (142-424); Red Blood Count 4.76 M/mm3 (4.20-5.40); Red Cell Distribution Width 14.3 % (11.5-17.5); White Blood Count 8.3 K/mm3 (4.8-10.8)
[2024-03-31 07:11] LABS: Anion Gap 9.1 mEq/L (5-15); Blood Urea Nitrogen 13 mg/dl (7-17); Calcium 8.4 mg/dl (8.4-10.2); Carbon Dioxide 26 mmol/L (22.0-30.0); Chloride 108 mmol/L (98-107); Creatinine Clearance Estimated 152 mL/min (50-200); Estimated Glomerular Filt Rate 83 ml/min (>60); GFR (African American) 100 ML/MIN (>60); Glucose 94 mg/dl (74-100); Potassium 3.1 mmoL/L (3.5-5.1); Sodium 140 mmol/L (136-145)
[2024-03-31 07:20] LABS: HCV Ab Non Reactive (Non Reactive)
--- NOTE | 2024-03-31 07:37 | PC.NURSE ---
0700: Pt. alert and orientated x 4. Pt. slept most of the night. did c/o nausea overnight and got a dose of Zofran, also coughing a lot Tessalon Pearls ordered for her. vital signs stable.
[2024-03-31 07:48] VITALS: BP 105/69; PULSE 59; RESP 16; TEMP 36.6; O2SAT 99
--- NOTE | 2024-03-31 08:11 | P.DS_ITS ---
General Admission date:: 03/29/24 Discharge date: 03/31/24 HPI HPI HPI: Patient is a 34-year-old female with past medical history of hypothyroidism, GERD, ADHD who presents to the hospital due to cough and shortness of breath. According to the patient she has not been feeling well for past 3 to 4 weeks, she has associated fevers chills along with productive cough. According to the patient she is not on oxygen at home, she also denies tobacco use. Patient otherwise denied diarrhea constipation. She mentions she has a history of recurrent urinary tract infections Hospital Course Hospital Course Hospital Course: Patient is a 34-year-old female with past medical history of hypothyroidism, GERD, ADHD who presents to the hospital due to cough and shortness of breath. According to the patient she has not been feeling well for past 3 to 4 weeks, she has associated fevers chills along with productive cough. According to the patient she is not on oxygen at home. Further reports today, she smokes a pack of cigarettes a week. Also occasionally smokes marijuana. States her cough with follow-up with new PCP in the coming weeks. Problems addressed as follows: Acute hypoxemic respiratory failure Pneumonia versus bronchitis -Initiated on Rocephin and azithromycin. Chest CT obtained and personally reviewed showing no pulmonary emboli, consolidation, airspace disease. Did have mild bronchial thickening concerning for bronchitis. Antibiotics transitioned to Levaquin to complete empiric course. Also has concern for UTI but urine culture still pending at discharge. Levaquin for dual coverage. Initiated on Advair inhaler twice daily. Tolerating DuoNebs. Will discharge home with albuterol inhaler and spacer. Given her improvement by day of discharge and able to wean to room air, stable to discharge home with further management as an outpatient. Concern patient may have component of asthma. Counseled on smoking cessation. Would benefit from outpatient PFTs for further evaluation of asthma versus obstructive lung disease. Urinary tract infection: Urinalysis grossly abnormal with 20-50 white cells, 2+ bacteria, nitrite and leuk esterase positive. Culture growing gram-negative rods. Urine positive for E. coli sensitive to Levaquin Reported history of hypothyroidism. TSH obtained, 0.73. Supposed to be on levothyroxine at home. Has not been taking due to no insurance. Will discontinue at this time given normal TSH. Chronic medical conditions ADHD/anxiety Morbid obesity complicating all care GERD -Continue pantoprazole 40 mg IV nightly -Needs other evaluation for anxiety as an outpatient as she may benefit from maintenance medications. Patient overall doing well. Stable to discharge home. Total time spent on discharge 32 minutes in counseling, documentation, chart review, and direct care with patient. Exam Data for Last 24 hours Vital signs and Labs for Last 24 Hours: Temp Pulse Resp BP Pulse Ox O2 Del Method O2 Flow Rate 97.8 F 59 L 16 105/69 L 99 Nasal Cannula 2 03/31/24 07:48 03/31/24 07:48 03/31/24 07:48 03/31/24 07:48 03/31/24 07:48 03/31/24 07:48 03/31/24 07:48 Laboratory Results - last 24 hr 03/29/24 20:51: Hepatitis C Antibody Non reactive 03/30/24 06:26: WBC 5.5 D, RBC 4.99, Hgb 15.4, Hct 46.0, MCV 92.1, MCH 30.8, MCHC 33.5, RDW 14.2, Plt Count 187, MPV 10.6 H, Neut % (Auto) 86.1 H, Lymph % (Auto) 11.6, [place] % (Auto) 1.9, Eos % (Auto) 0.1, Baso % (Auto) 0.3, Neut # (Auto) 4.8, Lymph # (Auto) 0.6 L, [place] # (Auto) 0.1, Eos # (Auto) 0.0, Baso # (Auto) 0.0, Total Counted 100, Neutrophils % (Manual) 87 H, Lymphocytes % (Manual) 13, Platelet Estimate Normal, RBC Morphology Normal, TSH 0.73 03/31/24 05:54: WBC 8.3 D, RBC 4.76, Hgb 14.0, Hct 43.6, MCV 91.7, MCH 29.5, M CHC 32.2, RDW 14.3, Plt Count 175, MPV 9.8, Neut % (Auto) 61.6, Lymph % (Auto) 32.0, [place] % (Auto) 5.1, Eos % (Auto) 0.6, Baso % (Auto) 0.8, Neut # (Auto) 5.1, Lymph # (Auto) 2.6, [place] # (Auto) 0.4, Eos # (Auto) 0.1, Baso # (Auto) 0.1, Sodium 140, Potassium 3.1 L D, Chloride 108 H, Carbon Dioxide 26, Anion Gap 9.1, BUN 13 D, Creatinine 0.80 D, Estimated Creat Clear 152, Estimated GFR 83, Est GFR ( Amer) 100 D, Glucose 94 D, Calcium 8.4 I & O for Last 24 hours: Intake & Output 03/28/24 03/29/24 03/30/24 03/31/24 23:59 23:59 23:59 23:59 Intake Total 860 / 860 618 / 618 Output Total 0 / 0 0 / 0 Balance 860 / 860 618 / 618 Weight 91.535 kg 91.535 kg 96.57 kg Microbiology Reports for the Last 24 Hours: Microbiology 03/30/24 12:51 Sputum - Expectorated Sputum Gram Stain - Preliminary 03/29/24 21:14 Blood Blood Culture - Preliminary NO GROWTH AFTER 24 HOURS 03/29/24 21:10 Blood Blood Culture - Preliminary NO GROWTH AFTER 24 HOURS 03/30/24 00:00 Urine,Clean Catch Urine Culture - Preliminary Gram Negative Rods Constitutional Constitutional: no acute distress, obese and cooperative *Routine HEENT Exam Head: Present normocephalic Eye: Present EOMI and PERRL ENT: Present mucous membranes moist *Routine Neck Exam Neck: Present supple; Absent lymphadenopathy *Routine Respiratory Exam Respiratory: Present prolonged expiratory phase and wheezes (Minimal end expiratory, improved.); Absent rhonchi or crackles *Routine Cardiovascular Exam Cardiovascular: Present RRR *Routine Abdominal Exam Abdominal: Present soft and normoactive bowel sounds; Absent tenderness *Routine Rectal Exam Patient deferred: visual exam *Routine Exam Patient deferred: external exam *Routine Extremities Exam Extremities: Absent cyanosis, clubbing or edema *Routine Skin Exam Skin: Present intact and warm; Absent rash *Routine Neurological Exam Neurological: Present alert, oriented X3 and moving all extremities; Absent altered mental status Results Data Completed and Pending Labs on day of discharge: Labs from last 24 hours 03/31/24 03/30/24 03/29/24 05:54 06:26 20:51 WBC 8.3 D 5.5 D RBC 4.76 4.99 Hgb 14.0 15.4 Hct 43.6 46.0 MCV 91.7 92.1 MCH 29.5 30.8 MCHC 32.2 33.5 RDW 14.3 14.2 Plt Count 175 187 MPV 9.8 10.6 H Neut % (Auto) 61.6 86.1 H Lymph % (Auto) 32.0 11.6 [place] % (Auto) 5.1 1.9 Eos % (Auto) 0.6 0.1 Baso % (Auto) 0.8 0.3 Neut # (Auto) 5.1 4.8 Lymph # (Auto) 2.6 0.6 L [place] # (Auto) 0.4 0.1 Eos # (Auto) 0.1 0.0 Baso # (Auto) 0.1 0.0 Total Counted 100 Neutrophils % (Manual) 87 H Lymphocytes % (Manual) 13 Platelet Estimate Normal RBC Morphology Normal Sodium 140 Potassium 3.1 L D Chloride 108 H Carbon Dioxide 26 Anion Gap 9.1 BUN 13 D Creatinine 0.80 D Estimated Creat Clear 152 Estimated GFR 83 Est GFR ( Amer) 100 D Glucose 94 D Calcium 8.4 TSH 0.73 Hepatitis C Antibody Non reactive Preliminary micro results at discharge 03/30/24 12:51 Gram Stain - Preliminary Sputum - Expectorated Sputum 03/29/24 21:14 Blood Culture - Preliminary Blood NO GROWTH AFTER 24 HOURS 03/29/24 21:10 Blood Culture - Preliminary Blood NO GROWTH AFTER 24 HOURS 03/30/24 00:00 Urine Culture - Preliminary Urine,Clean Catch Gram Negative Rods DS: Diagnosis Discharge Diagnosis (1) Acute hypoxemic respiratory failure: Status: Acute Code(s): J96.01 - Acute respiratory failure with hypoxia (2) Pneumonia: Status: Acute Code(s): J18.9 - Pneumonia, unspecified organism Qualifiers: Laterality: right Lung location: lower lobe of lung (3) Hypothyroidism: Status: Chronic Code(s): E03.9 - Hypothyroidism, unspecified Qualifiers: Hypothyroidism type: unspecified Qualified Code(s): E03.9 - Hypothyroidism, unspecified (4) Morbid obesity with BMI of 40.0-44.9, adult: Status: Acute Code(s): E66.01 - Morbid (severe) obesity due to excess calories; Z68.41 - Body mass index [BMI] 40.0-44.9, adult (5) Bronchitis: Status: Acute Code(s): J40 - Bronchitis, not specified as acute or chronic (6) Cough: Status: Acute Code(s): R05.9 - Cough, unspecified (7) Anxiety: Status: Chronic Code(s): F41.9 - Anxiety disorder, unspecified Meds Home Medications and Allergies Home Medications ?Medication ?Instructions ?Recorded ?Confirmed ?Type cetirizine 10 mg tablet 10 mg PO DAILYP PRN Allergy 03/30/24 03/30/24 History Symptoms albuterol sulfate 90 mcg/actuation 2 puff inhalation QIDP PRN 03/31/24 Rx aerosol inhaler (Ventolin HFA) shortness of breath or wheezing #8.5 grams benzonatate 100 mg capsule 100 mg PO TIDP PRN cough 6 days 03/31/24 Rx #18 caps fluticasone 100 mcg-salmeterol 50 1 inh inhalation BIDRT 30 days #60 03/31/24 Rx mcg/dose blistr powdr for ea inhalation (Advair Diskus) levofloxacin 500 mg tablet 500 mg PO DAILY 4 days #4 tabs 03/31/24 Rx New Prescriptions to Start Prescriptions: albuterol sulfate [Ventolin HFA] Juvenal Moulton benzonatate Juvenal Moulton fluticasone propion-salmeterol [Advair Diskus] Juvenal Moulton levofloxacin Juvenal Moulton Allergies Allergy/AdvReac Type Severity Reaction Status Date / Time venlafaxine [From Effexor] AdvReac Intermediate worsening Verified 07/03/23 11:54 depression vortioxetine AdvReac Intermediate nausea, Verified 07/03/23 11:54 [From Trintellix] anxiety cariprazine [From Vraylar] AdvReac Mild change in Verified 07/03/23 11:54 vision Discharge Plan Disposition Patient Disposition: Home, Self-Care Condition: Good Follow up Plan Follow up with: Elvira Fregoso [Referring] - Enter time for follow up Jannie More APRN [Nurse Practitioner] - 04/04/24 10:30 am Prescriptions/Medication Reconciliation: New albuterol sulfate [Ventolin HFA] 90 mcg/actuation Hfa Aerosol Inhaler 2 puff inhalation QIDP PRN (Reason: shortness of breath or wheezing) Qty: 8.5 0RF benzonatate 100 mg Capsule 100 mg PO TIDP PRN (Reason: cough) 6 Days Qty: 18 0RF fluticasone propion-salmeterol [Advair Diskus] 100-50 mcg/dose Blister With Device 1 inh inhalation BIDRT 30 Days Qty: 60 0RF levofloxacin 500 mg tablet 500 mg PO DAILY 4 Days Qty: 4 0RF Continued cetirizine 10 mg tablet 10 mg PO DAILYP PRN (Reason: Allergy Symptoms) Rx Instructions: TAKE ONE TABLET BY MOUTH ONCE A DAY NEEDED FOR ALLERGY SYMPTOMS Problem Reconciliation Problems Reviewed?: Yes Patient Discharge Instructions ACTIVITY: Continue current activity DIET: continue same diet Patient Instructions: DI for Pneumonia -- Adult, DI for Urinary Tract Infection (UTI) Print Language: Belarusian Providers Primary Care Provider: Zayda Lovett Admit Provider: Juvenal Moulton Attending Provider: Juvenal Moulton
[2024-03-31] MEDS: POTASSIUM CHLORIDE 20MEQ TAB 40 MEQ PO ×2 (08:58→13:22)
[2024-03-31] MEDS: LEVOFLOXACIN/D5W 750 MG/150 ML 750 MG/150 ML PIGGYBACK 100 MG IV (08:59)
[2024-03-31] MEDS: BENZONATATE 100MG CAPSULE 200 MG PO (10:33)
[2024-03-31 11:21] VITALS: PULSE 87; PULSE 88; O2SAT 97
[2024-03-31 12:00] VITALS: BP 112/75; PULSE 85; RESP 18; TEMP 36.6; O2SAT 96
[2024-03-31] MEDS: KETOROLAC 30MG/ML VIAL 30 MG IV (13:21)
--- NOTE | 2024-04-04 13:10 | CARE MANAGER ---
Attempted to contact patient x2 related to hospital discharge. No VM option available. ALKA Nazario
== END 2024-03-31 15:49 | disposition home or self-care (01) ==
LOC: ER 21:50 → 2ND 22:43
PROVIDERS: Internal Medicine; Admitting Provider Internal Medicine Adolescent Medicine; Emergency Provider Emergency Medicine; PCP Family Medicine; Visit Provider Internal Medicine Adolescent Medicine
DX: J96.01 Acute respiratory failure with hypoxia (principal); J18.9 Pneumonia, unspecified organism; E03.9 Hypothyroidism, unspecified; E66.01 Morbid (severe) obesity due to excess calories; J40 Bronchitis, not specified as acute or chronic; R05.9 Cough, unspecified; F41.9 Anxiety disorder, unspecified; F17.210 Nicotine dependence, cigarettes, uncomplicated; N39.0 Urinary tract infection, site not specified; Z68.36 Body mass index [BMI] 36.0-36.9, adult
CPT/HCPCS: 36415; 71046; 71275; 80048; 80053; 81001; 82803; 84145; 84443; 84484; 85007; 85025; 85027; 85378; 85610; 85730; 86803; 87040; 87070; 87077; 87081; 87086; 87088; 87186; 87205; 87389; 93005; 94640; 94761; 99291; G0238; G0378; J0456; J0696; J1644; J1650; J1885; J1956; J2405; J2919; J7050; J7620; Q9967

== ENCOUNTER 2025-01-24 16:16 | Outpatient (CLI) | payer OTHER, SELFPAY ==
[2025-01-24 19:08] LABS: Coronavirus 19, PCR Not Detected (NotDetected); Influenza A, PCR Not Detected (NotDetected); Influenza B, PCR Not Detected (NotDetected)
--- OUTSIDE RECORDS SUMMARY | 2025-01-26 12:24 | XMS_ITS | Referral Summary ---
Author Organization [facility] Address [address] [place] [address] [place] [address] Care Team Providers Care Action Installer Name Role Phone Unavailable Primary Care Provider Unavailabl e Social History Tobacco Use Types Packs/Day Years Used Date Smoking Tobacco: Never Assessed Comments Unknown Sex and Gender Information Value Date Recorded Sex Assigned at Not on file Legal Sex Female 7:23 PM EDT Gender Identity Not on file Sexual Orientation Not on file Plan of Treatment Not on file
--- OUTSIDE RECORDS SUMMARY | 2025-01-26 12:24 | XMS_ITS | Clinical Summary ---
Author Organization [facility] Address [facility] [place] [address] Care Team Providers Care Tumbling Instructor Name Role Phone Unavailable Primary Care Provider Unavailabl e Source Comments This information has been disclosed to you from confidential records protectedfrom disclosure by state law. You shall make no further disclosure of thisinformation without the specific, written, and informed release of theindividual to whom it pertains, or as otherwise permitted by law. A generalauthorization for the release of medical or other information is not sufficientfor the purposes of the release of HIV test results or diagnoses. [id number] Social History Tobacco Use Types Packs/Day Years Used Date Smoking Tobacco: Never Assessed Comments Unknown Sex and Gender Information Value Date Recorded Sex Assigned at Not on file Legal Sex Female 11:10 PM EST Gender Identity Not on file Sexual Orientation Not on file Plan of Treatment Not on file
--- OUTSIDE RECORDS SUMMARY | 2025-01-26 12:24 | XMS_ITS | Clinical Summary ---
Author Organization [facility] Address [address] [place] [id number] Care Team Providers Care Agriculture Science Teacher Name Role Phone Jack Restrepo M.D. Primary Care Provider Source Comments [facility] is fully rolled out with thefollowing exceptions:[facility] Medications [id number] (PRE-JUDY PO) Take 1 Tab by mouth 1 time daily. 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, not elsewhere classified, affecting management of mother, antepartum condition or complication 04/12/2009 Family History Medical History Relation Name Comments Seizures Father Substance Abuse Father Relation Name Status Comments Father Social History Tobacco Use Types Packs/Day Years Used Date Smoking Tobacco: Every Day Comments No Sex and Gender Information Value Date Recorded Sex Assigned at Not on file Legal Sex Female 5:32 AM EST Gender Identity Not on file Sexual Orientation Not on file Last Filed Vital Signs Vital Sign Reading Time Taken Comments Blood Pressure - - Pulse - - Temperature - - Respiratory Rate - - Oxygen Saturation - - Inhaled Oxygen Concentration - - Weight 80.3 kg (177 lb) 04/10/2009 2:38 PM EST Height 162.6 cm (5' 4 ) 04/10/2009 2:38 PM EST Body Mass Index 30.38 04/10/2009 2:38 PM EST Plan of Treatment Health Maintenance Due Date Last Done Comments MMR IMMUNIZATION (1 of 1 - S tandard series) 1992 DTAP/Tdap/Td IMMUNIZATION (1 - Tdap) 1998 VARICELLA IMMUNIZATION (1 of 2 - 13+ 2-dose series) 2004 HEPATITIS B IMMUNIZATION (1 of 3 - 19+ 3-dose series) 2010 HPV IMMUNIZATION (1 - 3-dose SCDM series) 2018 AMB SEASONAL FLU VACCINE (#1) 01/23/2025 COVID-19 Vaccine (1 - 2023-2 5 season) 2025 HIB IMMUNIZATION Aged Out No longer e ligible based on patient's age to complete this topic IPV IMMUNIZATION Aged Out No longer e ligible based on patient's age to complete this topic MCV4 IMMUNIZATION Aged Out No longer eligible based on patient's age to complete this topic MENINGOCOCCAL B VACCINE Aged Out No l onger eligible based on patient's age to complete this topic PNEUMOCOCCAL IMMUNIZATION Aged Out No longer eligible based on patient's age to complete this topic Respiratory Syncytial Virus (RSV) <20mo Aged Out No longer eligible b ased on patient's age to complete this topic Insurance Care Teams Agriculture Science Teacher Relationship Specialty Start Date End Date Jack Restrepo M.D. [address] [place] [address] PCP - General 04/10/09
--- OUTSIDE RECORDS SUMMARY | 2025-01-26 12:24 | XMS_ITS | Clinical Summary ---
Author Organization [facility] Address [address] [place] [address] [place] [address] Care Team Providers Care Concrete Tester Name Role Phone Unavailable Primary Care Provider Unavailabl e Social History Tobacco Use Types Packs/Day Years Used Date Smoking Tobacco: Never Assessed Comments Unknown Sex and Gender Information Value Date Recorded Sex Assigned at Not on file Legal Sex Female 7:23 PM EDT Gender Identity Not on file Sexual Orientation Not on file Plan of Treatment Health Maintenance Due Date Last Done Comments DTap,Tdap,and Td (1 - Tdap) 2002 Pap Screening 2012 HPV (1 - 3-dose SCDM series) 2018 Influenza Vaccine (#1) 2025 RSV Vaccine (60+ or ) (1 - 1-dose 75+ series) 2066 Meningococcal conjugate negrito nt 4 (MCV4) Aged Out No longer eligible b ased on patient's age to complete this topic Pneumococcal 0-49 Aged Out No longer eligible based on patient's age to complete this topic RSV Immunization (<20 months) Aged Out No longer eligible based on patient's age to complete this topic
== END 2025-01-24 23:59 | disposition home or self-care (01) ==
LOC: LAB.DROPOF 01-26 12:23
PROVIDERS: PCP Family Medicine; Visit Provider Family Medicine
DX: J06.9 Acute upper respiratory infection, unspecified (principal)
CPT/HCPCS: 87636

== ENCOUNTER 2025-02-20 17:17 | Emergency (ER) | payer OTHER, SELFPAY ==
[2025-02-20 17:20] VITALS: BP 146/103; PULSE 105; RESP 17; TEMP 36.6; O2SAT 94; BMI 40.3
--- OUTSIDE RECORDS SUMMARY | 2025-02-20 17:31 | XMS_ITS | Clinical Summary ---
Author Organization [facility] Address [address] [place] [address] [place] [address] Care Team Providers Care Certified Rehabilitation Counselor Name Role Phone Unavailable Primary Care Provider [...]
--- OUTSIDE RECORDS SUMMARY | 2025-02-20 17:31 | XMS_ITS | Clinical Summary ---
Author Organization [facility] Address [facility] [place] [address] Care Team Providers Care Lab Support Service Tech Name Role Phone Unavailable Primary Care Provider [...] release of HIV test results or diagnoses. [id number] Social History Tobacco Use Types Packs/Day Years Used Date Smoking Tobacco: Never Assessed Comments Unknown Sex and Gender Information Value Date Recorded Sex Assigned at Not on file Legal Sex Female 11:10 PM EST Gender Identity Not on file Sexual Orientation Not on file Plan of Treatment Not on file
--- NOTE | 2025-02-20 17:47 | XR_ITS ---
PROCEDURE INFORMATION: Exam: XR Chest Exam date and time: 02/20/2025 7:02 PM Age: 34 years old Clinical indication: Cough and shortness of breath; Additional info: SOA, cough TECHNIQUE: Imaging protocol: Radiologic exam of the chest. Views: 1 view. COMPARISON: 1. CT ANGIO CHEST PE PROTOCOL 03/30/2024 10:50 AM 2. CR XR CHEST 2V 03/29/2024 8:44 PM FINDINGS: Limitations: Radiographic technique - mild. Lungs: No definite consolidation. Pleural spaces: No significant pleural effusion. No pneumothorax. Heart/Mediastinum: No cardiomegaly. Bones/joints: No displaced fracture. Soft tissues: Unremarkable. IMPRESSION: No definite acute cardiopulmonary disease. If symptoms persist, consider CT for further evaluation.
--- NOTE | 2025-02-20 17:48 | [facility].EDCP ---
Discharge Plan Disposition Patient Disposition: Home, Self-Care Condition: Good Prescriptions Prescriptions: New azithromycin 250 mg tablet 250 mg PO DAILY 4 Days Qty: 4 0RF Rx Instructions: start on day 2 of therapy No Action tizanidine 4 mg tablet 4 mg PO Q8H PRN (Reason: muscle spasticity) Qty: 30 0RF ondansetron HCl 4 mg tablet 4 mg PO Q8H 5 Days Qty: 15 0RF benzonatate 100 mg capsule 100 mg PO TID PRN (Reason: cough) Qty: 30 0RF amuqaismmnsutiq-wogaknekd-AK [Bromfed DM] 2-30-10 mg/5 mL syrup 5 ml PO Q4-6H PRN (Reason: cough) Qty: 100 0RF cetirizine 10 mg tablet 10 mg PO DAILYP PRN (Reason: Allergy Symptoms) Rx Instructions: TAKE ONE TABLET BY MOUTH ONCE A DAY NEEDED FOR ALLERGY SYMPTOMS albuterol sulfate [Ventolin HFA] 90 mcg/actuation Hfa Aerosol Inhaler 2 puff inhalation QIDP PRN (Reason: shortness of breath or wheezing) Qty: 8.5 0RF fluticasone propion-salmeterol [Advair Diskus] 100-50 mcg/dose Blister With Device 1 inh inhalation BIDRT 30 Days Qty: 60 0RF Referrals Follow up/Referrals: Zayda Lovett APRN [Primary Care Provider, Family Practice] - See instructions Activity Restrictions/Add. Instructions Additional Instructions/Restrictions: We will follow-up the radiologist interpretation of your chest x-ray. I am prescribing you a azithromycin for atypical pneumonia. Take this as prescribed. If there is any evidence of more concerning pneumonias on your chest x-ray, you will receive a call for additional antibiotics, otherwise, take this as prescribed. If you develop any new or worsening symptoms, or if you become concerned for your health for any reason, return to the emergency department for evaluation. Clinical Impressions Clinical Impression: Cough Print Language Print Language: Salvadorean Discharge ED Provider: Nathan Huynh HPI <INNA Robin - Last Filed: 02/20/25 18:56> General Chief Complaint: Upper Respiratory Infection Stated Complaint: soa, low o2, cough Time Seen by Provider: 02/20/25 17:35 Mode of Arrival: Ambulatory Source of Information: Patient Limitations: No Limitations History of Present Illness HPI narrative: 34-year-old female presents to the emergency department with a 1 month history of shortness of breath, nonproductive cough, and pleuritic type chest pain, patient states that she was seen approximately 3 to 4 weeks ago by her PCP, had a viral swab which was negative, told it was a nonspecific viral illness, kids had similar symptomatology, patient states her symptoms are just not improved, and over the last several days she has felt increasing shortness of breath as well as some lightheadedness, patient denies any fever or chills, denies any overt chest pain, patient also states that today she utilized an at home oxygen saturation sensor, which showed low 90s , patient denies any abdominal pain no nausea no vomiting no constipation no diarrhea, no urinary type symptomatology, no melena hematochezia hematemesis or hemoptysis, no vaginal discharge, patient is a current everyday smoker, current everyday use of alcohol, patient tells me she drinks around a pint of vodka , daily, admits to occasional marijuana use, denies any other illicit drug use, other past medical history is consistent with MDD, PTSD, ADHD, GERD, history of bilateral salpingectomy. Initial triage vitals notable for tachycardia and SpO2 at 94-95% on room air. Please note that above description of symptoms, in this electronic medical record under categorization of recalled from ER triage doctor by RN are reflective of an initial nursing assessment, however, is not reflective of my full history and physical exam that was personally taken and clarified. Consequentially, this preceding description of symptoms, which may include the patient's categorized chief complaint in the EMR, do not reflect my personal clinical impression, and the ultimate description of history of present illness and patient stated complaints should be deferred to this section of the note. Unless stated otherwise or congruent with this section of the note, additional signs, symptoms, or incongruence should be interpreted as inaccurate with my clinical impression. Onset (ago): month(s) Related Data Home Medications ?Medication ?Instructions ?Recorded ?Confirmed cetirizine 10 mg tablet 10 mg PO DAILYP PRN Allergy 03/30/24 01/24/25 Symptoms Previous Rx's ?Medication ?Instructions ?Recorded albuterol sulfate 90 mcg/actuation 2 puff inhalation QIDP PRN 03/31/24 aerosol inhaler (Ventolin HFA) shortness of breath or wheezing #8.5 grams fluticasone 100 mcg-salmeterol 50 1 inh inhalation BIDRT 30 days #60 03/31/24 mcg/dose blistr powdr for ea inhalation (Advair Diskus) tizanidine 4 mg tablet 4 mg PO Q8H PRN muscle spasticity 10/18/24 #30 tabs benzonatate 100 mg capsule 100 mg PO TID PRN cough #30 caps 01/24/25 ondansetron HCl 4 mg tablet 4 mg PO Q8H 5 days #15 tabs 01/24/25 udcuuldbubrpwtg-kcfbtfegnwngawk-YP 5 ml PO Q4-6H PRN cough #100 mL 02/13/25 2 mg-30 mg-10 mg/5 mL oral syrup (Bromfed DM) azithromycin 250 mg tablet 250 mg PO DAILY 4 days #4 tabs 02/20/25 Allergies Allergy/AdvReac Type Severity Reaction Status Date / Time venlafaxine (From Effexor) AdvReac Intermediate worsening Verified 01/24/25 16:07 depression vortioxetine (From AdvReac Intermediate nausea, Verified 01/24/25 16:07 Trintellix) anxiety cariprazine (From Vraylar) AdvReac Mild change in Verified 01/24/25 16:07 vision [facility] <INNA Robin - Last Filed: 02/20/25 18:56> [facility] Disclaimer: The information contained in this section may have been updated after the patient was seen, as this information can be updated by other users. Medical History SOB (shortness of breath) Menometrorrhagia Intra-abdominal adhesions Urinary tract infection Kidney stone Pneumonia History of gastroesophageal reflux (GERD) Allergies History of anemia Sterilization Morbid obesity with BMI of 40.0-44.9, adult Attention deficit hyperactivity disorder (ADHD) Gastroesophageal reflux disease Depression Anxiety Hypothyroidism Surgical History History of bilateral salpingectomy laparoscopy with lysis of adhesions and BS, 03/26/22 Hx of section x4 Family History Father Diabetes Thyroid disorder Mother COPD (chronic obstructive pulmonary disease) Thyroid disorder Social History (Reviewed 01/24/25 @ 16:00 by LASHAWN Alvarez Smoking Status: Current every day smoker tobacco type: cigarettes packs per day: 1 years smoked: 10 alcohol intake: current alcohol intake frequency: holidays/special occasions only substance use type: marijuana current occupational status: unemployed Travel in the last 8 weeks?: Inside the [place] caffeine: No Have you lived/traveled outside [place] in past 30 days?: No Contact w/someone who lives/traveled outside [place] past 30 days?: No Exposure to someone with infectious disease in past 14 days?: No Do you have a fever (greater than 100.4 F or 38 C)?: No Have you tested positive for COVID-19?: No Exposed to someone with COVID-19 in past 14 days?: No Do you have a sore throat?: No Do you have a cough?: Yes Do you have any weakness?: Yes Do you have any diarrhea?: No Are you experiencing any unusual bleeding?: No Do you have any muscle aches/pain?: No Do you have any abdominal pain?: No Are you experiencing loss of taste or smell?: No Other Medical History Have you received the Flu Vaccine for this season: No Have you received the Pneumonia Vaccine: No <INNA Robin - Last Filed: 02/20/25 18:56> ROS Obtained: Yes All systems reviewed & no additional complaints except as documented Physical Exam <INNA Robin - Last Filed: 02/20/25 18:56> General General appearance: alert and in no apparent distress Head Head exam: atraumatic and normocephalic Eye Eye exam: Present PERRL and EOMI ENT ENT exam: Present mucous membranes moist Neck Neck exam: Present normal inspection Chest Chest inspection: Present normal inspection and symmetric chest wall rise Respiratory Respiratory exam: Present other (Mild crackles noted throughout bilateral lung saucedo); Absent normal lung sounds bilaterally, respiratory distress or wheezes Cardiovascular Cardiovascular exam: Present regular rate and normal rhythm Abdominal Exam Abdominal exam: Present soft; Absent tenderness, guarding, rebound or rigidity Extremities Exam Extremities exam: Present normal inspection Neurological Exam Neurological exam: Present alert and oriented X3 Psychiatric Psychiatric exam: Present normal affect Skin Skin exam: Present warm and dry HEART Score <INNA Robin Last Filed: 02/20/25 18:56> HEART Score HEART Score assessment performed?: No Critical Care <INNA Robin Last Filed: 02/20/25 18:56> Critical Care Time Critical Care Time: No Medical Decision Making <INNA Robin - Last Filed: 02/20/25 18:56> Medical Records Medical records reviewed: Yes I reviewed the patient's medical records. Jonathan Inquiry Pt receiving controlled substance: No Jonathan was queried for this patient: No Vital Signs Vital Signs: 02/20/25 17:20 02/20/25 18:01 02/20/25 18:31 Temperature 97.9 F Temperature Source Oral Pulse Rate 98 H 96 H Pulse Rate [Left Radial] 105 H Respiratory Rate 17 Blood Pressure 126/89 133/92 H Blood Pressure [Right Arm] 146/103 H Blood Pressure Mean 101 98 Blood Pressure Mean [Right Arm] 117 Blood Pressure Source Blood Pressure Source [Right Arm] Automatic Cuff Blood Pressure Position Blood Pressure Position [Right Arm] Sitting 02 Sat by Pulse Oximetry 94 L 93 L 95 Oxygen Delivery Method Room Air 02/20/25 19:01 02/20/25 20:16 02/20/25 20:47 Temperature 97.9 F Temperature Source Oral Pulse Rate 96 H 91 H 74 Pulse Rate [Left Radial] Respiratory Rate 16 Blood Pressure 133/95 H 147/99 H 124/74 Blood Pressure [Right Arm] Blood Pressure Mean Blood Pressure Mean [Right Arm] Blood Pressure Source Automatic Cuff Blood Pressure Source [Right Arm] Blood Pressure Position Supine Blood Pressure Position [Right Arm] 02 Sat by Pulse Oximetry 94 L 96 Oxygen Delivery Method Room Air Lab Data Lab results reviewed: Yes I reviewed the patient's lab results. Labs: Lab Results 02/20/25 17:36: WBC 6.5, RBC 4.67, Hgb 14.6, Hct 43.5, MCV 93.1, MCH 31.3 H, MCHC 33.6, RDW 12.8, Plt Count 199, MPV 12.2 H, Neut % (Auto) 48.2, Lymph % (Auto) 34.6, [place] % (Auto) 6.7, Eos % (Auto) 8.9, Baso % (Auto) 1.4, Neut # (Auto) 3.2, Lymph # (Auto) 2.3, [place] # (Auto) 0.4, Eos # (Auto) 0.6 H, Baso # (Auto) 0.1, PT 11.2, INR 1.01, APTT 23.1, D-Dimer 0.55 H, VBG pH 7.46 H, VBG pCO2 35.5, VBG pO2 131.7 H, VBG HCO3 24.5, VBG Total CO2 25.5, VBG O2 Saturation 99.1 H, VBG Base Excess 0.6, VBG Lactic Acid 3.0 H, Sodium 137, Potassium 3.7, Chloride 104, Carbon Dioxide 25, Anion Gap 11.7, BUN 10, Creatinine 0.70, Estimated GFR 96, Est GFR ( Amer) 117, Glucose 102 H, Calcium 9.0, Magnesium 1.8, Total Bilirubin 0.6, AST 68 H, ALT 65, Alkaline Phosphatase 72, Troponin I < 0.01, NT-Pro-B Natriuret Pep < 20.0, Total Protein 7.2, Albumin 4.2, Globulin 3.0, Albumin/Globulin Ratio 1.4, Lipase 39, Plasma/Serum Alcohol < 10 02/20/25 18:56: SARS-CoV-2 (PCR) Not detected, Influenza A Untype (PCR) Not detected, Influenza Type B (PCR) Not detected 02/20/25 20:16: Urine Opiates Screen Negative, Urine Methadone Screen Negative, Ur Barbituates Screen Negative, Ur Phencyclidine Scrn Negative, Ur Amphetamines Screen Negative, U Benzodiazepines Scrn Negative, Urine Cocaine Screen Negative, U Marijuana (THC) Screen Positive H 02/20/25 20:17: Urine Color Yellow, Urine Appearance Clear, Urine pH 7.0, Ur Specific [place] 1.020, Urine Protein Trace, Urine Glucose (UA) Negative, Urine Ketones Trace, Urine Blood 1+ A, Urine Nitrate Negative, Urine Bilirubin 1+ A, Urine Urobilinogen 1.0, Ur Leukocyte Esterase Negative, Urine RBC Occasional, Urine WBC None, Ur Squamous Epith Cells 3-5, Calcium Oxalate Crystal 1+, Urine Bacteria None, Urine HCG, Qual Negative 02/20/25 17:36 02/20/25 17:36 Response Orders (Tests/Meds): ED MEDICATIONS Discontinued Medications Generic Name Dose Route Start Last Admin Trade Name Freq PRN Reason Stop Dose Admin Azithromycin 500 mg 02/20/25 20:41 02/20/25 20:47 Azithromycin 250mg Tablet PO 02/20/25 20:42 500 mg ONCE ONE Administration ORDERS Category Date Time Status XR chest portable Stat Exams 02/20/25 17:47 Completed Complete Blood Count Auto Diff Stat Lab 02/20/25 17:36 Completed Comprehensive Metabolic Panel Stat Lab 02/20/25 17:36 Completed D-Dimer Stat Lab 02/20/25 17:36 Completed Drug Screen,Urine Stat Lab 02/20/25 20:16 Completed Ethanol [Ethyl Alcohol] Stat Lab 02/20/25 17:36 Completed Lipase Stat Lab 02/20/25 17:36 Completed Magnesium Stat Lab 02/20/25 17:36 Completed NT Pro Brain Natriuretic Pep. Stat Lab 02/20/25 17:36 Completed PT INR [Prothrombin Time INR] Stat Lab 02/20/25 17:36 Completed PTT [Activated Partial Thrombo Time] Stat Lab 02/20/25 17:36 Completed Rapid PCR Covid and Flu A/B Stat Lab 02/20/25 18:56 Completed Troponin I Stat Lab 02/20/25 17:36 Completed Urinalysis and Microscopic Stat Lab 02/20/25 20:17 Completed Urine , HCG Qual. Stat Lab 02/20/25 20:17 Completed VBG [Venous Blood Gas] Stat RT 02/20/25 17:36 Completed MDM Narrative Medical Decision Narrative: 34-year-old female presents to the emergency department with a 1 month history of nonproductive cough, subjective fever chills shortness of air, differential diagnosis include but not limited to pneumonia, acute bronchitis, other URI, pleural effusion, pulmonary edema, pleurisy, cardiac arrhythmia, electrolyte disturbance, panic attack, anxiety type reaction, among others. Will obtain basic laboratory studies, CXR, EKG, coags, D-dimer UDS urinalysis lipase of alcohol level magnesium level proBNP troponin, rapid PCR COVID and flu, urine hCG, UA. CBC unremarkable Coags within normal limits VBG is notable for elevated pH of 7.46, pO2 is elevated at 131.7, bicarb and pCO2 within normal limits, venous lactic is elevated at 3 Coags within normal limits D-dimer is minimally elevated at 0.55, however, utilizing years criteria/years algorithm for pulmonary embolism, negative for PE. Ethyl alcohol level within normal limit. CMP is notable for elevated AST at 68, ALT within normal limits, lipase within normal limits, no electrolyte derangements. I discussed this patient's case with the attending physician Dr. Huynh at shift change she will be assuming admitted the patient's care/workup, disposition is pending radiology reads of the patient's chest x-ray as well as urinalysis and clinical reassessment. <Nathan Huynh MD - Last Filed: 02/21/25 11:03> Vital Signs Vital Signs: 02/20/25 17:20 02/20/25 18:01 02/20/25 18:31 Temperature 97.9 F Temperature Source Oral Pulse Rate 98 H 96 H Pulse Rate [Left Radial] 105 H Respiratory Rate 17 Blood Pressure 126/89 133/92 H Blood Pressure [Right Arm] 146/103 H Blood Pressure Mean 101 98 Blood Pressure Mean [Right Arm] 117 Blood Pressure Source Blood Pressure Source [Right Arm] Automatic Cuff Blood Pressure Position Blood Pressure Position [Right Arm] Sitting 02 Sat by Pulse Oximetry 94 L 93 L 95 Oxygen Delivery Method Room Air 02/20/25 19:01 02/20/25 20:16 02/20/25 20:47 Temperature 97.9 F Temperature Source Oral Pulse Rate 96 H 91 H 74 Pulse Rate [Left Radial] Respiratory Rate 16 Blood Pressure 133/95 H 147/99 H 124/74 Blood Pressure [Right Arm] Blood Pressure Mean Blood Pressure Mean [Right Arm] Blood Pressure Source Automatic Cuff Blood Pressure Source [Right Arm] Blood Pressure Position Supine Blood Pressure Position [Right Arm] 02 Sat by Pulse Oximetry 94 L 96 Oxygen Delivery Method Room Air Lab Data Labs: Lab Results 02/20/25 17:36: WBC 6.5, RBC 4.67, Hgb 14.6, Hct 43.5, MCV 93.1, MCH 31.3 H, MCHC 33.6, RDW 12.8, Plt Count 199, MPV 12.2 H, Neut % (Auto) 48.2, Lymph % (Auto) 34.6, [place] % (Auto) 6.7, Eos % (Auto) 8.9, Baso % (Auto) 1.4, Neut # (Auto) 3.2, Lymph # (Auto) 2.3, [place] # (Auto) 0.4, Eos # (Auto) 0.6 H, Baso # (Auto) 0.1, PT 11.2, INR 1.01, APTT 23.1, D-Dimer 0.55 H, VBG pH 7.46 H, VBG pCO2 35.5, VBG pO2 131.7 H, VBG HCO3 24.5, VBG Total CO2 25.5, VBG O2 Saturation 99.1 H, VBG Base Excess 0.6, VBG Lactic Acid 3.0 H, Sodium 137, Potassium 3.7, Chloride 104, Carbon Dioxide 25, Anion Gap 11.7, BUN 10, Creatinine 0.70, Estimated GFR 96, Est GFR ( Amer) 117, Glucose 102 H, Calcium 9.0, Magnesium 1.8, Total Bilirubin 0.6, AST 68 H, ALT 65, Alkaline Phosphatase 72, Troponin I < 0.01, NT-Pro-B Natriuret Pep < 20.0, Total Protein 7.2, Albumin 4.2, Globulin 3.0, Albumin/Globulin Ratio 1.4, Lipase 39, Plasma/Serum Alcohol < 10 02/20/25 18:56: SARS-CoV-2 (PCR) Not detected, Influenza A Untype (PCR) Not detected, Influenza Type B (PCR) Not detected 02/20/25 20:16: Urine Opiates Screen Negative, Urine Methadone Screen Negative, Ur Barbituates Screen Negative, Ur Phencyclidine Scrn Negative, Ur Amphetamines Screen Negative, U Benzodiazepines Scrn Negative, Urine Cocaine Screen Negative, U Marijuana (THC) Screen Positive H 02/20/25 20:17: Urine Color Yellow, Urine Appearance Clear, Urine pH 7.0, Ur Specific [place] 1.020, Urine Protein Trace, Urine Glucose (UA) Negative, Urine Ketones Trace, Urine Blood 1+ A, Urine Nitrate Negative, Urine Bilirubin 1+ A, Urine Urobilinogen 1.0, Ur Leukocyte Esterase Negative, Urine RBC Occasional, Urine WBC None, Ur Squamous Epith Cells 3-5, Calcium Oxalate Crystal 1+, Urine Bacteria None, Urine HCG, Qual Negative Response Orders (Tests/Meds): ED MEDICATIONS Discontinued Medications Generic Name Dose Route Start Last Admin Trade Name Kmq PRN Reason Stop Dose Admin Azithromycin 500 mg 02/20/25 20:41 02/20/25 20:47 Azithromycin 250mg Tablet PO 02/20/25 20:42 500 mg ONCE ONE Administration ORDERS Category Date Time Status XR chest portable Stat Exams 02/20/25 17:47 Completed Complete Blood Count Auto Diff Stat Lab 02/20/25 17:36 Completed Comprehensive Metabolic Panel Stat Lab 02/20/25 17:36 Completed D-Dimer Stat Lab 02/20/25 17:36 Completed Drug Screen,Urine Stat Lab 02/20/25 20:16 Completed Ethanol [Ethyl Alcohol] Stat Lab 02/20/25 17:36 Completed Lipase Stat Lab 02/20/25 17:36 Completed Magnesium Stat Lab 02/20/25 17:36 Completed NT Pro Brain Natriuretic Pep. Stat Lab 02/20/25 17:36 Completed PT INR [Prothrombin Time INR] Stat Lab 02/20/25 17:36 Completed PTT [Activated Partial Thrombo Time] Stat Lab 02/20/25 17:36 Completed Rapid PCR Covid and Flu A/B Stat Lab 02/20/25 18:56 Completed Troponin I Stat Lab 02/20/25 17:36 Completed Urinalysis and Microscopic Stat Lab 02/20/25 20:17 Completed Urine , HCG Qual. Stat Lab 02/20/25 20:17 Completed VBG [Venous Blood Gas] Stat RT 02/20/25 17:36 Completed MDM Narrative Medical Decision Narrative: 34-year-old female presents to the emergency department with a 1 month history of nonproductive cough, subjective fever chills shortness of air, differential diagnosis include but not limited to pneumonia, acute bronchitis, other URI, pleural effusion, pulmonary edema, pleurisy, cardiac arrhythmia, electrolyte disturbance, panic attack, anxiety type reaction, among others. Will obtain basic laboratory studies, CXR, EKG, coags, D-dimer UDS urinalysis lipase of alcohol level magnesium level proBNP troponin, rapid PCR COVID and flu, urine hCG, UA. CBC unremarkable Coags within normal limits VBG is notable for elevated pH of 7.46, pO2 is elevated at 131.7, bicarb and pCO2 within normal limits, venous lactic is elevated at 3 Coags within normal limits D-dimer is minimally elevated at 0.55, however, utilizing years criteria/years algorithm for pulmonary embolism, negative for PE. Ethyl alcohol level within normal limit. CMP is notable for elevated AST at 68, ALT within normal limits, lipase within normal limits, no electrolyte derangements. I discussed this patient's case with the attending physician Dr. Huynh at shift change she will be assuming admitted the patient's care/workup, disposition is pending radiology reads of the patient's chest x-ray as well as urinalysis and clinical reassessment. I was consulted by the FRENCH, and we discussed the complexity of the problems being addressed. I approve the treatment and management plan for this patient's care in the emergency department, thus performing a substantive portion of the medical decision making. Chest x-ray interpreted by me personally. No focal consolidation, no pneumothorax, no widened mediastinum, no enlargement of the cardiac silhouette. Unremarkable chest x-ray. There was significant delay in radiology interpretation of patient's imaging. On reassessment, patient remains in stable condition. She states that she has had a chronic cough for approximately 1 month now and has not been on any antibiotic treatment, only cough suppressants. Given the longevity of the cough, it could be environmental marketing representative of an atypical pneumonia. Will give 500 mg of azithromycin here in the emergency department and then 4 days of doing 50 mg daily azithromycin. Will review radiology interpretation of patient's x-ray imaging and call patient if there is need for any additional antibiotics. All questions were answered. Patient demonstrated understanding and was in agreement this plan. She was then discharged from the emergency department in stable condition. Per radiology interpretation, no definite acute cardiopulmonary disease . Nathan Huynh MD
[2025-02-20 18:01] VITALS: BP 126/89; PULSE 98; O2SAT 93
[2025-02-20 18:03] LABS: Hematocrit 43.5 % (37.0-47.0); Hemoglobin 14.6 g/dL (12.2-16.2); Immature Granulocytes % 0.2 %; Mean Corpuscular HGB Conc 33.6 g/dL (31.8-35.4); Mean Corpuscular Hemoglobin 31.3 pg (27.0-31.2); Mean Corpuscular Volume 93.1 fl (81-99); Nucleated Red Blood Cells % 0 %; Platelet Count 199 K/mm3 (142-424); Red Blood Count 4.67 M/mm3 (4.20-5.40); Red Cell Distribution Width-SD 43.8 fL; White Blood Count 6.5 K/mm3 (4.8-10.8)
[2025-02-20 18:06] LABS: VBG HCO3 24.5 mmol/L (23-30); VBG PCO2 35.5 mmol/L (35-51); VBG PH 7.46 mmol/L (7.31-7.41); VBG PO2 131.7 mmol/L (28-40)
[2025-02-20 18:07] LABS: Lactate Venous 3.0 mmol/L (0.4-2.0)
[2025-02-20 18:11] LABS: INR 1.01 (0.9-1.1); Prothrombin Time 11.2 seconds (10.1-12.5)
[2025-02-20 18:12] LABS: Alanine Aminotransferase 65 U/L (12-78); Albumin Level 4.2 g/dl (3.5-5.0); Albumin/Globulin Ratio 1.4 (1.1-1.8); Alkaline Phosphatase 72 U/L (38-126); Anion Gap 11.7 mEq/L (5-15); Aspartate Amino Transferase 68 U/L (14-36); Bilirubin,Total 0.6 mg/dl (0.2-1.3); Blood Urea Nitrogen 10 mg/dl (7-17); Calcium 9.0 mg/dl (8.4-10.2); Carbon Dioxide 25 mmol/L (22.0-30.0); Chloride 104 mmol/L (98-107); Creatinine,Serum 0.70 mg/dl (0.52-1.04); Estimated Glomerular Filt Rate 96 ml/min (>60); GFR (African American) 117 ML/MIN (>60); Globulin 3.0 g/dL (1.3-3.2); Glucose 102 mg/dl (74-100); Lipase 39 U/L (23-300); Magnesium 1.8 mg/dl (1.6-2.3); Potassium 3.7 mmoL/L (3.5-5.1); Sodium 137 mmol/L (136-145); Total Protein,Serum 7.2 g/dl (6.3-8.2)
[2025-02-20 18:15] LABS: Activated Partial Thrombo Time 23.1 seconds (22.8-30.6)
[2025-02-20 18:22] LABS: D-Dimer 0.55 ug/mL (0.0-0.5)
[2025-02-20 18:31] VITALS: BP 133/92; PULSE 96; O2SAT 95
--- NOTE | 2025-02-20 18:56 | ECG_ITS ---
APPROVED REPORT Exam: Resting ECG HR:87 bpm ECG Measurements Heart Rate 87 AXES ND 146 P 41 QRSd 87 QRS 92 QT 373 T 62 QTc 417 Conclusion SINUS RHYTHM BORDERLINE RIGHT AXIS DEVIATION [QRS AXIS > 90] BORDERLINE ECG UNCONFIRMED REPORT Electronically signed by : JAMAL TELLEZ, 02/20/2025 22:59:23
[2025-02-20 19:01] VITALS: BP 133/95; PULSE 96; O2SAT 94
[2025-02-20 19:11] LABS: Coronavirus 19, PCR Not Detected (NotDetected); Influenza A, PCR Not Detected (NotDetected); Influenza B, PCR Not Detected (NotDetected)
[2025-02-20 20:16] VITALS: BP 147/99; PULSE 91; O2SAT 96
[2025-02-20 20:35] LABS: Microscopic, Urine URINE MICROSCOPIC (MICROSCOPIC)
[2025-02-20 20:41] LABS: Color,Urine YELLOW (Yellow); Glucose,Urine (UA) Negative (Negative); Ketones,Urine TRACE (Negative); Leukocyte Esterase,Urine Negative (Negative); PH,Urine 7.0 (5.0-8.5); Protein,Urine TRACE (Negative); Specific Gravity, Urine 1.020 (1.005-1.030); Urobilinogen,Urine 1.0 EU/dl (0.2)
[2025-02-20 20:47] VITALS: BP 124/74; PULSE 74; RESP 16; TEMP 36.6; O2SAT 98
[2025-02-20 20:47] LABS: Urine Pregnancy, HCG Qual. Negative (Negative)
[2025-02-20] MEDS: AZITHROMYCIN 250MG TABLET 500 MG PO (20:47)
[2025-02-20 20:50] LABS: NT Pro Brain Natriuretic Pep. < 20.0 pg/mL (0-125)
[2025-02-20 20:55] LABS: Amphetamine/Metha Screen,Urine Negative ng/ml (<1000)
[2025-02-20 20:56] LABS: Barbiturates Screen,Urine Negative ng/ml (<200); Benzodiazepines Screen,Urine Negative ng/ml (<200)
[2025-02-20 20:58] LABS: Methadone Screen,Urine Negative ng/ml (<300)
[2025-02-20 20:59] LABS: Opiate Screen,Urine Negative ng/ml (<300); Phencyclidine Screen,Urine Negative ng/ml (<25)
[2025-02-20 20:59] LABS: Troponin I < 0.01 ng/ml (0.00-0.034)
[2025-02-20 21:11] LABS: Bilirubin,Urine 1+ (Negative)
[2025-02-20 22:07] LABS: Reflex Lactic Add Lactic Reflex
[2025-02-20 22:30] LABS: Calcium Oxalate Crystals,Urine 1+ /lpf; RBC,Urine Occasional #/hpf (0-3)
== END 2025-02-20 20:51 | disposition home or self-care (01) ==
PROVIDERS: Physician Assistant; Emergency Provider Student in an Organized Health Care Education/Training Program; PCP Family Medicine
DX: R06.02 Shortness of breath (principal); R00.0 Tachycardia, unspecified; R05.2 Subacute cough; R42 Dizziness and giddiness; F17.210 Nicotine dependence, cigarettes, uncomplicated; F12.90 Cannabis use, unspecified, uncomplicated
CPT/HCPCS: 71045; 80053; 80307; 80320; 81001; 81025; 82803; 83690; 83735; 83880; 84484; 85025; 85378; 85610; 85730; 87636; 93005; 99284